=== PATIENT | male | born 1960 | race Hispanic/Latino ===

== ENCOUNTER 2016-10-28 07:02 | Day surgery (SDC) | payer MEDICARE ==
[2016-10-17 10:35] VITALS: BMI 25.0
[2016-10-28] MEDS ORDERED: Propofol 10 mg/ml Inj (20 ML) ONE ×2 (08:08→08:59)
[2016-10-28] MEDS ORDERED: Benzocaine/Butamben/Tetracai 14-2-2% TOP Spray TOP ONE (08:13)
[2016-10-28] MEDS ORDERED: Ketamine 10 mg/ml Inj (20 ml) ONE (08:27)
[2016-10-28] MEDS ORDERED: Sodium Chloride 0.9% 1,000 ML IV SCH (10:00)
[2016-10-28 10:04] VITALS: TEMP 98
[2016-10-28 10:59] VITALS: PULSE 77; O2SAT 97
[2016-10-28 11:08] VITALS: BP 124/74; RESP 18
--- NOTE | 2016-10-28 13:47 | RAD ---
PROCEDURE: Fluoroscopy up to 1 hour HISTORY: Esophageal dilation COMPARISON: TECHNIQUE: Fluoroscopy was provided in the endoscopy suite. 5 minutes and 27 seconds of fluoroscopy time were used. Four images were submitted FINDINGS: The balloon catheter in the distal esophagus IMPRESSION: As above
== END 2016-10-28 11:44 | disposition home or self-care (01) ==
LOC: ENDO 07:02
PROVIDERS: ATTEND Internal Medicine Gastroenterology
DX: K22.2 Esophageal obstruction (principal)
CPT/HCPCS: 43248; 76000; J2704; J2765; J7040 ×2

== ENCOUNTER 2017-01-20 07:19 | Day surgery (SDC) | payer MEDICARE ==
[2016-10-17 10:35] VITALS: BMI 25.0
[2017-01-20 08:00] VITALS: RESP 17
[2017-01-20] MEDS ORDERED: Propofol 10 mg/ml Inj (20 ML) ONE (08:55)
[2017-01-20] MEDS ORDERED: Sodium Chloride 0.9% 1,000 ML IV SCH (10:00)
[2017-01-20 10:37] VITALS: BP 112/62; PULSE 62; TEMP 98.7; O2SAT 99
--- NOTE | 2017-01-20 11:45 | RAD ---
PROCEDURE: Fluoroscopy up to 1 hour HISTORY: Esophogeal Dilation COMPARISON: TECHNIQUE: Fluoroscopy was provided in the endoscopy suite. 5 minutes and 9 seconds of fluoro time. Ten images were submitted FINDINGS: The study shows placement of a wire and catheter in the distal esophagus for the purposes of dilatation. IMPRESSION: As above
== END 2017-01-20 10:54 | disposition home or self-care (01) ==
LOC: ENDO 07:19
PROVIDERS: ATTEND Internal Medicine Gastroenterology
DX: K22.2 Esophageal obstruction (principal); F41.9 Anxiety disorder, unspecified; Z98.890 Other specified postprocedural states; Z79.899 Other long term (current) drug therapy
CPT/HCPCS: 43248; 76000; J2704; J3010; J7040 ×2

== ENCOUNTER 2017-03-31 06:48 | Day surgery (SDC) | payer MEDICARE ==
[2016-10-17 10:35] VITALS: BMI 25.0
[2017-03-31] MEDS ORDERED: Propofol 10 mg/ml Inj (20 ML) ONE ×3 (09:10→09:46)
[2017-03-31] MEDS ORDERED: Sodium Chloride 0.9% 1,000 ML IV SCH (09:15)
[2017-03-31 11:14] VITALS: RESP 18
[2017-03-31 11:49] VITALS: BP 121/71; PULSE 67; TEMP 97.9; O2SAT 99
--- NOTE | 2017-03-31 19:04 | RAD ---
PROCEDURE: Esophageal dilatation under fluoroscopic guidance HISTORY: ESOPHAGEAL DILATATION COMPARISON: None TECHNIQUE: Standard protocol for this study/examination. FINDINGS: Submitted images from the current procedure: 6.0. Total fluoroscopic time (continuous mode) utilized during the procedure: 2 minutes 14 seconds. IMPRESSION: Less than 1 hr fluoroscopic time utilized during performance of the procedure.
== END 2017-03-31 12:49 | disposition home or self-care (01) ==
LOC: ENDO 06:48
PROVIDERS: ATTEND Internal Medicine Gastroenterology
DX: K22.2 Esophageal obstruction (principal)

== ENCOUNTER 2017-08-18 06:47 | Day surgery (SDC) | payer MEDICARE ==
[2017-08-07 09:37] VITALS: BMI 24.2
[2017-08-18] MEDS ORDERED: Lactated Ringer's 1,000 ML IV SCH (08:30)
[2017-08-18] MEDS ORDERED: Propofol 10 mg/ml Inj (20 ML) ONE (08:42)
[2017-08-18 11:36] VITALS: BP 111/67; PULSE 68; RESP 16; TEMP 98.1; O2SAT 98
--- NOTE | 2017-08-18 16:39 | RAD ---
PROCEDURE: Fluoroscopy up to 1 hr. HISTORY: Dilation of esophagus under fluoro COMPARISON: None TECHNIQUE: Standard protocol for this study/examination. FINDINGS: Total fluoroscopic time (continuous mode) utilized during the procedure: 222.2 seconds Total exam DLP: 55.23 (mGy) IMPRESSION: Submitted images from the current procedure: 8.0
== END 2017-08-18 11:27 | disposition home or self-care (01) ==
LOC: ENDO 06:47
PROVIDERS: ATTEND Internal Medicine Gastroenterology
DX: K22.2 Esophageal obstruction (principal)
CPT/HCPCS: 43248; J2001; J2704; J3010; J7040; J7120

== ENCOUNTER 2017-12-29 06:43 | Day surgery (SDC) | payer MEDICARE ==
[2017-08-07 09:37] VITALS: BMI 24.2
[2017-12-29] MEDS ORDERED: Propofol 10 mg/ml Inj (20 ML) ONE (08:20)
[2017-12-29] MEDS ORDERED: ePHEDrine 50 mg/ml Inj ONE (08:51)
[2017-12-29] MEDS ORDERED: Sodium Chloride 0.9% 1,000 ML IV SCH (09:45)
[2017-12-29 10:07] VITALS: BP 113/70
[2017-12-29 10:24] VITALS: PULSE 66; RESP 17; TEMP 98.1; O2SAT 97
--- NOTE | 2018-01-01 10:32 | RAD ---
PROCEDURE: Intraoperative Fluoroscopy. HISTORY: ESOPHAGEAL DILATION FINDINGS: Fluoroscopic assistance was provided. Fluoroscopy time = 2.921 seconds Radiation dose = 2.99 mGy Please refer to the operative report for additional details
== END 2017-12-29 10:53 | disposition home or self-care (01) ==
LOC: ENDO 06:43
PROVIDERS: ATTEND Internal Medicine Gastroenterology
DX: K22.2 Esophageal obstruction (principal)
CPT/HCPCS: 43248; 76000; J2704; J3010; J7030; J7040

== ENCOUNTER 2018-08-08 22:11 | Inpatient (IN) | payer MEDICARE, OTHER ==
--- NOTE | 2018-08-08 23:03 | ED PDOC ---
Arrival/HPI - General Chief Complaint: Medical Clearance Time Seen by Provider: 08/08/18 22:44 Historian: Patient - History of Present Illness Narrative History of Present Illness (Text): 08/08/18 23:03 Toribio Phelan is a 57 year old male, whose past medical history includes esophageal stricture, recurrent aspiration pneumonia, and chronic back pain, who presents to the Emergency department complaining of shortness of breath. Patient states he has been experiencing shortness of breath and cough over the past week, worsening tonight. Patient states symptoms have been consistent with previous episodes of pneumonia and notes he was recently placed on antibiotics by his PMD with no significant relief. Patient denies any fever, chills, chest pain, nausea, vomiting, diarrhea, urinary symptoms, back pain, neck pain, headac he, dizziness, or any other complaints. PMD: Dr. Little Symptom Onset: Gradual Symptom Course: Unchanged Activities at Onset: Light Context: Home Past Medical History - Provider Review Nursing Documentation Reviewed: Yes - Infectious Disease Hx of Infectious Diseases: None - Tetanus Immunization Tetanus Immunization: Unknown - Cardiac Hx Pacemaker: No - Pulmonary Hx Pneumonia: Yes (aspirations pneumonia) Other/Comment: stricture of esophagus - Neurological Hx Paralysis: No - HEENT Hx HEENT Disorder: Yes (wears eyeglasses) - Renal Hx Renal Disorder: No - Endocrine/Metabolic Hx Endocrine Disorders: No - Hematological/Oncological Hx Blood Transfusions: No Hx Blood Transfusion Reaction: No - Integumentary Hx Dermatological Disorder: No - Musculoskeletal/Rheumatological Hx Musculoskeletal Disorders: Yes - Gastrointestinal Other/Comment: esophageal stricture. throat dialation several egd's - Genitourinary/Gynecological Hx Genitourinary Disorders: No - Psychiatric Hx Emotional Abuse: No Hx Substance Use: No - Surgical History Other/Comment: back surgery - Anesthesia Hx Anesthesia Reactions: No Hx Malignant Hyperthermia: No - Suicidal Assessment Feels Threatened In Home Enviroment: No Family/Social History - Physician Review Nursing Documentation Reviewed: Yes Family/Social History: Unknown Family HX Smoking Status: Former Smoker Hx Alcohol Use: No Hx Substance Use: No Hx Substance Use Treatment: No Allergies/Home Meds Allergies/Adverse Reactions: Allergies No Known Allergies Allergy (Verified 08/08/18 22:46) Home Medications: Home Meds Medication Instructions Recorded Confirmed Cyclobenzaprine HCl [Flexeril] 10 mg PO TID 05/10/13 08/02/18 Sertraline [Zoloft] 100 mg PO QAM 05/10/13 08/02/18 Ascorbate Calcium [Vitamin C] 500 mg PO QAM 04/11/16 08/02/18 Clonazepam [Klonopin] 1 mg PO QAM 04/11/16 08/02/18 Clonazepam [Klonopin] 2 mg PO HS 04/11/16 08/02/18 Omeprazole 40 mg PO QAM 04/11/16 08/02/18 Oxycodone HCl [Oxycontin] 80 mg PO QID 04/11/16 08/02/18 Oxycodone HCl [Oxycontin] 15 mg PO QID 04/15/16 08/02/18 Review of Systems - Physician Review All systems were reviewed & negative as marked: Yes - Review of Systems Constitutional: Normal. absent: Fevers Eyes: Normal ENT: Normal Respiratory: SOB, Cough Cardiovascular: Normal. absent: Chest Pain Gastrointestinal: Normal. absent: Abdominal Pain, Diarrhea, Nausea, Vomiting Genitourinary Male: Normal. absent: Dysuria, Frequency, Hematuria, Urinary Output Changes Musculoskeletal: Normal. absent: Back Pain, Neck Pain Skin: Normal. absent: Rash Neurological: Normal. absent: Headache, Dizziness Endocrine: Normal Hemo/Lymphatic: Normal Psychiatric: Normal Physical Exam Vital Signs Reviewed: Yes Vital Signs Pulse Resp BP Pulse Ox 08/08/18 22:45 88 18 104/74 97 Temperature: Afebrile Blood Pressure: Normal Pulse: Regular Respiratory Rate: Normal Appearance: Positive for: Well-Appearing, Non-Toxic, Comfortable Pain Distress: None Mental Status: Positive for: Alert and Oriented X 3 - Systems Exam Head: Present: Atraumatic, Normocephalic Pupils: Present: PERRL Extroacular Muscles: Present: EOMI Conjunctiva: Present: Normal Mouth: Present: Moist Mucous Membranes Neck: Present: Normal Range of Motion Respiratory/Chest: Present: Rhonchi. No: Respiratory Distress, Accessory Muscle Use Cardiovascular: Present: Regular Rate and Rhythm, Normal S1, S2. No: Murmurs Abdomen: No: Tenderness, Distention, Peritoneal Signs Back: Present: Normal Inspection Upper Extremity: Present: Normal Inspection. No: Cyanosis, Edema Lower Extremity: Present: Normal Inspection. No: Edema Neurological: Present: GCS=15, CN II-XII Intact, Speech Normal Skin: Present: Warm, Dry, Normal Color. No: Rashes Psychiatric: Present: Alert, Oriented x 3, Normal Insight, Normal Concentration Medical Decision Making ED Course and Treatment: 08/08/18 23:03 Impression: 57 year old male complaining of shortness of breath and cough. Plan: -- EKG -- Chest X-ray -- Labs, cardiac enzymes, blood cultures, BNP -- Duoneb -- Oxycodone -- Reassess and disposition Prior Visits: Notes and results from previous visits were reviewed. Progress Notes: 08/08/18 23:[address] Little, who is aware and agrees with plan. Accepts pt in to his service. Pt [facility] be [facility] for bronchitis. 08/09/18 01:22 Chest X-ray reviewed, shows no acute processes. 08/09/18 01:30 Reviewed EKG, NSR at 80 bpm. RBBB. LAFB. Non-specific ST/T wave changes. - Lab Interpretations I have reviewed the lab results: Yes - RAD Interpretation Brand Inspector: ED Physician - EKG Interpretation Interpreted by ED Physician: Yes Type: 12 lead EKG - Scribe Statement The provider has reviewed the documentation as recorded by the Scribe Yokasta Forrester Provider Scribe Attestation: All medical record entries made by the Scribe were at my direction and personally dictated by me. I have reviewed the chart and agree that the record accurately reflects my personal performance of the history, physical exam, medical decision making, and the department course for this patient. I have also personally directed, reviewed, and agree with the discharge instructions and disposition. Disposition/Present on Arrival - Present on Arrival Any Indicators Present on Arrival: No History of DVT/PE: No History of Uncontrolled Diabetes: No Urinary Catheter: No History of Decub. Ulcer: No History Surgical Site Infection Following: None - Disposition Have Diagnosis and Disposition been Completed?: Yes Diagnosis: Asthmatic bronchitis Disposition: HOSPITALIZED Disposition Time: 01:00 Condition: FAIR
[2018-08-08] MEDS ORDERED: Albuterol-Ipratrop 3 mg / 0.5 (3 ml) UD IH STA (23:19)
[2018-08-08] MEDS ORDERED: oxyCODONE 15 mg Immediate Release Tab PO STA (23:34)
[2018-08-08] MEDS ORDERED: oxyCODONE 80 mg ER Tab (oxyCONTIN) PO STA (23:35)
[2018-08-09 00:07] LABS: BASO # 0.02 K/mm3 (0.0-2.0); BASO % 0.2 % (0.0-3.0); EOS % 0.1 % (1.5-5.0); HEMOGLOBIN 10.9 g/dL (14.0-18.0); LYMPH # 1.8 (1.2-3.4); LYMPH % 19.4 % (22.0-35.0); MEAN CORPUSCULAR HEMOGLOBIN 26.1 pg (25.0-35.0); MEAN CORPUSCULAR HGB CONC 31.5 g/dl (31.0-37.0); MEAN PLATELET VOLUME 9.1 fl (7.0-11.0); MONO # 0.7 (0.1-0.6); RBC 4.17 10^6/uL (3.5-6.1); RED CELL DISTRIBUTION WIDTH 14.8 % (11.5-14.5); WHITE BLOOD COUNT 9.3 10^3/uL (4.5-11.0)
[2018-08-09 00:09] LABS: ALBUMIN 4.2 g/dL (3.0-4.8); ALT/SGPT 12 U/L (7-56); AST/SGOT 48 U/L (17-59); BLOOD UREA NITROGEN 25 mg/dL (7-21); CALCIUM 8.6 mg/dL (8.4-10.5); GFR NON-AFRICAN AMERICAN > 60
[2018-08-09] MEDS ORDERED: Piperacillin/Tazobact 3.375 gm 100 ML IVPB STA (00:12)
[2018-08-09 00:21] LABS: B-TYPE NATRIURETIC PEPTIDE 113 pg/mL (0-450); TROPONIN I < 0.01 ng/mL
[2018-08-09 00:32] LABS: CK MB% 3.4 % (2.5-3.0); CK-MB 8.4 ng/mL (0.0-3.6)
[2018-08-09] MEDS ORDERED: Albuterol-Ipratrop 3 mg / 0.5 (3 ml) UD IH PRN (01:03)
[2018-08-09] MEDS ORDERED: oxyCODONE 15 mg Immediate Release Tab PO PRN (08:13)
--- NOTE | 2018-08-09 09:21 | RAD ---
Date of service: 08/08/2018 HISTORY: sob COMPARISON: 10/04/2014 TECHNIQUE: Chest PA and lateral FINDINGS: LUNGS: There is chronic scarring at the right lung base similar in appearance to the exam from 2014. PLEURA: No significant pleural effusion identified. No pneumothorax apparent. CARDIOVASCULAR: No aortic atherosclerotic calcification present. Normal cardiac size. No pulmonary vascular congestion. OSSEOUS STRUCTURES: No significant abnormalities. VISUALIZED UPPER ABDOMEN: Normal. OTHER FINDINGS: None. IMPRESSION: Chronic scarring at the right lung base and elevation of the right hemidiaphragm. No acute findings
[2018-08-09] MEDS: oxyCODONE 20 mg ER Tab (oxyCONTIN) PO SCH ×2 (09:56→17:02)
[2018-08-09] MEDS: Pantoprazole 40 mg EC Tab PO SCH (09:57)
[2018-08-09] MEDS ORDERED: Non Formulary Medication (Omeprazole [Omeprazole] 40 MG) PO SCH (10:00)
--- NOTE | 2018-08-09 10:48 | CARD ---
APPROVED REPORT Date of service: 08/09/2018 EKG Measurement Heart [id number] <Conclusion> Normal sinus rhythm Right bundle branch block Left anterior fascicular block Bifascicular block Possible Lateral infarct, age undetermined Abnormal ECG
[2018-08-09] MEDS: oxyCODONE 5 mg Immediate Release Tab PO PRN ×2 (10:56→19:23)
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
--- NOTE | 2018-08-09 15:40 | CP.PCM.CON ---
<Liz Costa - Last Filed: 08/09/18 15:41> History of Present Illness - History of Present Illness History of Present Illness: Gastroenterology Fellow/PGY6 Consult Note 57 year old male with PMH of esophageal stricture s/p multiple dilations (most recent 12/2017) complicated by recurrent aspiration pneumonia and chronic back pain presenting with shortness of breath. Patient admits to non-productive cough and difficulty breath for one week despite use of antibiotic therapy from PCP. Notes symptoms similar to prior episodes of pneumonia. Admits to nausea without vomiting. He has been able to tolerate regular diet since last esophageal stricture dilation 12/2017. Endorses subjective unintentional weight loss with stable weight documented in the last year on EMR review. Denies hematemesis, dysphagia, odynophagia, chest pain, abdominal pain, constipation, or diarrhea. Multiple prior EGD 04/2016 to 12/2017 for stricture dilations. No prior colonoscopy. Family History-denies colon cancer, stomach cancer Social History- former tobacco and alcohol use, quit over 40 years ago, denies i llicit drug use Surgical History-back surgery, appendectomy, left ankle surgery, hernia repair Review of Systems - Review of Systems Review of Systems: 12-point review of systems negative except for as above Past Patient History - Infectious Disease Hx of Infectious Diseases: None - Tetanus Immunizations Tetanus Immunization: Unknown - Past Social History Smoking Status: Former Smoker - CARDIAC Hx Pacemaker: No - PULMONARY Hx Pneumonia: Yes (aspirations pneumonia) Other/Comment: stricture of esophagus - NEUROLOGICAL Hx Paralysis: No - HEENT Hx HEENT Problems: Yes (wears eyeglasses) - RENAL Hx Chronic Kidney Disease: No - ENDOCRINE/METABOLIC Hx Endocrine Disorders: No - HEMATOLOGICAL/ONCOLOGICAL Hx Blood Transfusions: No Hx Blood Transfusion Reaction: No - INTEGUMENTARY Hx Dermatological Problems: No - MUSCULOSKELETAL/RHEUMATOLOGICAL Hx Musculoskeletal Disorders: Yes - GASTROINTESTINAL Other/Comment: esophageal stricture. throat dialation several egd's - GENITOURINARY/GYNECOLOGICAL Hx Genitourinary Disorders: No - PSYCHIATRIC Hx Emotional Abuse: No Hx Substance Use: No - SURGICAL HISTORY Other/Comment: back surgery - ANESTHESIA Hx Anesthesia Reactions: No Hx Malignant Hyperthermia: No Meds Allergies/Adverse Reactions: Allergies Allergy/AdvReac Type Severity Reaction Status Date / Time No Known Allergies Allergy Verified 08/09/18 12:34 - Medications Medications: Current Medications Acetaminophen (Tylenol 325mg Tab) 650 mg PO Q4H PRN PRN Reason: Pain, Mild (1-3) Acetylcysteine (Acetylcysteine 20%) 4 ml IH BIDRESP [facility] Albuterol/Ipratropium (Duoneb 3 Mg/0.5 Mg (3 Ml) Ud) 3 ml IH Q4H PRN PRN Reason: Shortness of Breath Arformoterol Tartrate (Brovana) 15 mcg IH [id number] ANASTACIO Budesonide (Pulmicort Respules) 0.5 mg IH [id number] ANASTACIO Clonazepam (Klonopin) 1 mg PO QAM [facility]; Protocol Last Admin: 08/09/18 09:57 Dose: 1 mg Cyclobenzaprine HCl (Flexeril) 10 mg PO TID [facility] Last Admin: 08/09/18 14:32 Dose: 10 mg Doxycycline Hyclate (Doryx) 100 mg PO Q12 [facility]; Protocol Enoxaparin Sodium (Lovenox) 30 mg SC DAILY [facility]; Protocol Ampicillin Sodium/Sulbactam (Sodium 3 gm/ Sodium Chloride) 100 mls @ 200 mls/hr IVPB Q6 [facility]; Protocol Oxycodone HCl (Oxycontin Extended Release Tab) 60 mg PO Q8H [facility] Last Admin: 08/09/18 09:56 Dose: 60 mg Oxycodone HCl (Oxycodone Immediate Release Tab) 15 mg PO Q6H PRN PRN Reason: Pain, severe (8-10) Last Admin: 08/09/18 10:56 Dose: 15 mg Pantoprazole Sodium (Protonix Ec Tab) 40 mg PO DAILY [facility] Last Admin: 08/09/18 09:57 Dose: 40 mg Sertraline HCl (Zoloft) 100 mg PO QAM [facility] Last Admin: 08/09/18 10:21 Dose: 100 mg Physical Exam - Constitutional Appears: Non-toxic, No Acute Distress - Head Exam Head Exam: ATRAUMATIC, NORMOCEPHALIC - Eye Exam Eye Exam: EOMI, PERRL Pupil Exam: PERRL. absent: Miosis, Mydriatic - ENT Exam ENT Exam: Mucous Membranes Moist, Normal Oropharynx - Neck Exam Neck exam: Positive for: Full Rom, Normal Inspection - Respiratory Exam Respiratory Exam: Clear to Auscultation Bilateral. absent: Rales, Rhonchi, Wheezes - Cardiovascular Exam Cardiovascular Exam: RRR, +S1, +S2. absent: Gallop, Rubs - GI/Abdominal Exam GI & Abdominal Exam: Normal Bowel Sounds, Soft. absent: Distended, Firm, Guarding, Organomegaly, Rebound, Rigid, Tenderness - Extremities Exam Extremities exam: Positive for: normal inspection. Negative for: pedal edema - Neurological Exam Neurological exam: Alert - Psychiatric Exam Psychiatric exam: Agitated, Normal Affect - Skin Skin Exam: Dry, Intact, Normal Color, Warm Results - Vital Signs Recent Vital Signs: Last Vital Signs Temp 98.0 F 08/09/18 04:08 Pulse 86 08/09/18 04:08 Resp 16 08/09/18 04:08 BP 121/76 08/09/18 04:08 Pulse Ox 94 L 08/09/18 04:08 - Labs Result Diagrams: 08/08/18 23:45 08/08/18 23:45 Labs: Laboratory Results - last 24 hr 08/08/18 08/08/18 08/09/18 23:45 23:45 01:23 WBC 9.3 RBC 4.17 Hgb 10.9 L Hct 34.6 L MCV 83.0 MCH 26.1 MCHC 31.5 RDW 14.8 H Plt Count 285 MPV 9.1 Neut % (Auto) 73.3 H Lymph % (Auto) 19.4 L [place] % (Auto) 7.0 H Eos % (Auto) 0.1 L Baso % (Auto) 0.2 Lymph # (Auto) 1.8 [place] # (Auto) 0.7 H Eos # (Auto) 0.0 Baso # (Auto) 0.02 Absolute Neuts (auto) 6.83 H Sodium 139 Potassium 3.9 Chloride 100 Carbon Dioxide 28 Anion Gap 15 BUN 25 H Creatinine 0.9 Est GFR ( Amer) > 60 Est GFR (Non-Af Amer) > 60 Random Glucose 105 Calcium 8.6 Magnesium 2.1 Total Bilirubin 0.3 AST 48 ALT 12 Alkaline Phosphatase 91 Lactate Dehydrogenase 547 Total Creatine Kinase 245 H CK-MB (CK-2) 8.4 H CK-MB (CK-2) % 3.4 H Troponin I < 0.01 D NT-Pro-B Natriuret Pep 113 Total Protein 8.5 H Albumin 4.2 Globulin 4.3 Albumin/Globulin Ratio 1.0 L Influenza Typ A,B (EIA) Negative for flu a/b Assessment & Plan - Assessment and Plan (Free Text) Assessment: 57 year old male with PMH of esophageal stricture s/p multiple dilations (most recent 12/2017) complicated by recurrent aspiration pneumonia and chronic back pain presenting with shortness of breath. Active treatment of acute bronchitis. GI consultation for anemia and history of esophageal stricture. Multiple prior EGD for stricture dilations from 04/2016 to EGD 12/2017 showing esophageal stricture at 18cm from incisors s/p sequential Savory dilation from [address] without complication. No prior colonoscopy. Plan: -tolerating regular diet in ER -ID and primary team managing bronchitis -on antibiotics and steroids -chronic normocytic anemia with baseline Hgb/Hct -follow up iron panel, B12, folate levels -will discuss scheduling of repeat EGD after improved pulmonary management for stricture surveillance with Dr. Hanson due to concern for possible aspiration with acute bronchitis -will benefit from colonoscopy for colorectal cancer screening once confirm no aspiration risk to be able to tolerate bowel preparation <Candido Hanson V - Last Filed: 08/10/18 00:07> Meds - Medications Medications: Current Medications Acetaminophen (Tylenol 325mg Tab) 650 mg PO Q4H PRN PRN Reason: Pain, Mild (1-3) Acetylcysteine (Acetylcysteine 20%) 4 ml IH BIDRESP [facility] Albuterol/Ipratropium (Duoneb 3 Mg/0.5 Mg (3 Ml) Ud) 3 ml IH Q4H PRN PRN Reason: Shortness of Breath Arformoterol Tartrate (Brovana) 15 mcg IH [id number] [facility] Budesonide (Pulmicort Respules) 0.5 mg IH [id number] ANASTACIO Clonazepam (Klonopin) 1 mg PO QAM [facility]; Protocol Last Admin: 08/09/18 09:57 Dose: 1 mg Cyclobenzaprine HCl (Flexeril) 10 mg PO TID [facility] Last Admin: 08/09/18 18:41 Dose: 10 mg Doxycycline Hyclate (Doryx) 100 mg PO Q12 [facility]; Protocol Last Admin: 08/09/18 23:32 Dose: 100 mg Enoxaparin Sodium (Lovenox) 30 mg SC DAILY [facility]; Protocol Ampicillin Sodium/Sulbactam (Sodium 3 gm/ Sodium Chloride) 100 mls @ 200 mls/hr IVPB Q6 [facility]; Protocol Last Admin: 08/09/18 18:37 Dose: 200 mls/hr Oxycodone HCl (Oxycontin Extended Release Tab) 60 mg PO Q8H [facility] Last Admin: 08/09/18 17:02 Dose: 60 mg Oxycodone HCl (Oxycodone Immediate Release Tab) 15 mg PO Q6H PRN PRN Reason: Pain, severe (8-10) Last Admin: 08/09/18 19:23 Dose: 15 mg Pantoprazole Sodium (Protonix Ec Tab) 40 mg PO DAILY [facility] Last Admin: 08/09/18 09:57 Dose: 40 mg Sertraline HCl (Zoloft) 100 mg PO QAM [facility] Last Admin: 08/09/18 10:21 Dose: 100 mg Results - Vital Signs Recent Vital Signs: Last Vital Signs Temp 98 F 08/09/18 17:00 Pulse 77 08/09/18 17:00 Resp 18 08/09/18 17:00 BP 120/54 L 08/09/18 17:00 Pulse Ox 98 08/09/18 17:00 - Labs Result Diagrams: 08/08/18 23:45 08/08/18 23:45 Labs: Laboratory Results - last 24 hr 08/08/18 08/08/18 08/09/18 23:45 23:45 01:23 WBC 9.3 RBC 4.17 Hgb 10.9 L Hct 34.6 L MCV 83.0 MCH 26.1 MCHC 31.5 RDW 14.8 H Plt Count 285 MPV 9.1 Neut % (Auto) 73.3 H Lymph % (Auto) 19.4 L [place] % (Auto) 7.0 H Eos % (Auto) 0.1 L Baso % (Auto) 0.2 Lymph # (Auto) 1.8 [place] # (Auto) 0.7 H Eos # (Auto) 0.0 Baso # (Auto) 0.02 Absolute Neuts (auto) 6.83 H Sodium 139 Potassium 3.9 Chloride 100 Carbon Dioxide 28 Anion Gap 15 BUN 25 H Creatinine 0.9 Est GFR ( Amer) > 60 Est GFR (Non-Af Amer) > 60 Random Glucose 105 Calcium 8.6 Magnesium 2.1 Iron TIBC % Saturation Transferrin Ferritin Total Bilirubin 0.3 AST 48 ALT 12 Alkaline Phosphatase 91 Lactate Dehydrogenase 547 Total Creatine Kinase 245 H CK-MB (CK-2) 8.4 H CK-MB (CK-2) % 3.4 H Troponin I < 0.01 D NT-Pro-B Natriuret Pep 113 Total Protein 8.5 H Albumin 4.2 Globulin 4.3 Albumin/Globulin Ratio 1.0 L Vitamin B12 Folate Procalcitonin Influenza Typ A,B (EIA) Negative for flu a/b 08/09/18 08/09/18 08/09/18 10:40 17:52 17:52 WBC RBC Hgb Hct MCV MCH MCHC RDW Plt Count MPV Neut % (Auto) Lymph % (Auto) [place] % (Auto) Eos % (Auto) Baso % (Auto) Lymph # (Auto) [place] # (Auto) Eos # (Auto) Baso # (Auto) Absolute Neuts (auto) Sodium Potassium Chloride Carbon Dioxide Anion Gap BUN Creatinine Est GFR ( Amer) Est GFR (Non-Af Amer) Random Glucose Calcium Magnesium Iron 32 L TIBC 384 % Saturation 8 L Transferrin Ferritin 27.9 Total Bilirubin AST ALT Alkaline Phosphatase Lactate Dehydrogenase Total Creatine Kinase CK-MB (CK-2) CK-MB (CK-2) % Troponin I NT-Pro-B Natriuret Pep Total Protein Albumin Globulin Albumin/Globulin Ratio Vitamin B12 588 Folate 8.4 Procalcitonin 0.57 H Influenza Typ A,B (EIA) 08/09/18 17:52 WBC RBC Hgb Hct MCV MCH MCHC RDW Plt Count MPV Neut % (Auto) Lymph % (Auto) [place] % (Auto) Eos % (Auto) Baso % (Auto) Lymph # (Auto) [place] # (Auto) Eos # (Auto) Baso # (Auto) Absolute Neuts (auto) Sodium Potassium Chloride Carbon Dioxide Anion Gap BUN Creatinine Est GFR ( Amer) Est GFR (Non-Af Amer) Random Glucose Calcium Magnesium Iron TIBC % Saturation Transferrin 277.05 Ferritin Total Bilirubin AST ALT Alkaline Phosphatase Lactate Dehydrogenase Total Creatine Kinase CK-MB (CK-2) CK-MB (CK-2) % Troponin I NT-Pro-B Natriuret Pep Total Protein Albumin Globulin Albumin/Globulin Ratio Vitamin B12 Folate Procalcitonin Influenza Typ A,B (EIA) Attending/Attestation - Attestation I have personally seen and examined this patient.: Yes I have fully participated in the care of the patient.: Yes I have reviewed all pertinent clinical information: Yes Notes (Text): This is an addendum to GI consult report dictated by the Painter Plate. The patient was seen and evaluated earlier. Medical records, lab studies, imagings were reviewed. Last 24 hours events reviewed. Agreed with the above treatment plan as outlined in Painter Plate 's notes with the addition of the following 08/10/18 00:06
--- NOTE | 2018-08-09 15:57 | CON ---
DATE: 08/09/2018 PULMONARY CONSULTATION NOTE REFERRING PHYSICIAN: Dr. Ishaan Little. REASON FOR CONSULTATION: Shortness of breath, recurrent aspiration pneumonia and cough. HISTORY OF PRESENT ILLNESS: This is a 57 year old male with past medical history significant for esophageal stricture, recurrent aspiration pneumonia, chronic back pain, history of laminectomy in the past. The patient came into emergency room complaining of shortness of breath, which has gotten worse over the past week, reports it is worse at night. He was placed on antibiotics by his primary care physician with no relief. The patient states that this occurs frequently due to esophageal stricture where he tends to develop aspiration pneumonia often. Today, he reports productive cough, denies shortness of breath. No headache, rhinitis, chest pain, abdominal pain, nausea, vomiting, diarrhea, leg pain or leg swelling reported. PAST MEDICAL HISTORY: As per history of present illness. ALLERGIES: NO KNOWN ALLERGIES. SOCIAL HISTORY: Never smoked. No EtOH abuse. No illicit drug use reported. FAMILY HISTORY: No significant cardiopulmonary disease reported. MEDICATIONS: Tylenol 650 mg every 4 hours p.r.n. mild pain, DuoNeb 3 mL inhalation every 4 hours p.r.n., Klonopin 1 mg daily, Flexeril 10 mg three times a day, OxyContin 60 mg every 8 hours, oxycodone immediate relief 50 mg every 6 hours p.r.n., Protonix 40 mg daily, and Zoloft 100 mg daily. REVIEW OF SYSTEMS: No headache, rhinitis, chest pain, abdominal pain, nausea, vomiting, diarrhea, leg pain, or leg swelling reported. The patient does have productive cough. Denies shortness of breath at this time. PHYSICAL EXAMINATION GENERAL: Sitting up in bed, no acute distress. VITAL SIGNS: Blood pressure 126/76, pulse 86, temperature 98 and oxygen saturation 94% on room air. HEENT: Moist mucous membranes. Crowded airway. Mallampati score of 4. NECK: Supple. No JVD. LUNGS: Rhonchi bilaterally. Mild wheezing. Crackles at the bases. CARDIOVASCULAR: S1 and S2 audible. ABDOMEN: Soft and nontender. No distention. No organomegaly. EXTREMITIES: No bilateral lower extremity edema. NEUROLOGIC: Awake, alert, verbal. Follows commands. LABORATORY DATA: Reviewed. WBC 9.3, RBC 4.17, hemoglobin 10.9, hematocrit 34.6, and platelets 285. Sodium 139, potassium 3.9, chloride 100, carbon dioxide 28, anion gap of 15, BUN 25, creatinine 0.9, GFR greater than 60, random glucose 105, calcium 8.6, magnesium 2.1, total bilirubin 0.3, AST 48, ALT 12, alkaline phosphatase 91, lactated dehydrogenase 547, total creatine kinase 245, CK-MB 8.4, CK-MB % 3.4, troponin less than 0.01, proBNP 113, total protein 8.5, albumin 4.2, globulin 4.3 and albumin-globulin ratio 1. Influenza type A and B negative. Chest x-ray shows chronic scarring at the right lung base and elevation of the right hemidiaphragm. No acute findings. EKG shows normal sinus rhythm, right bundle-branch block, left anterior vesicular block, possible lateral infarct age undetermined. IMPRESSION AND PLAN: The patient has history of recurrent aspiration pneumonia, history of esophageal stricture. We will order procalcitonin to be done in the morning to determine bacterial pneumonia. We will place the patient on Brovana, Pulmicort, Mucomyst nebulizer treatments. We will start Lovenox for deep venous thrombosis prophylaxis. We will add Unasyn antibiotics at this time until procalcitonin level is back. We will order esophagogram for esophageal stricture. The patient is pending Gastroenterology consult. We will order anemia workup and stool for guaiac in the morning. Aspiration precaution, head of bed elevated at 45 degrees and fall precautions. This patient is seen and examined with Dr. Vaughan. Discussed assessment and plan as described above. Seen and examined with Nirali Black APN. Discussed assessment and plan as described above. Thank you for this consult. We will follow with you. Wayne Campoverde APN Arnav Vaughan MD [facility]
[2018-08-09 16:41] VITALS: BMI 23.5
[2018-08-09] MEDS ORDERED: Pneumococcal 23-Valent Vaccine IM ONE (16:41)
[2018-08-09] MEDS ORDERED: Influenza Vaccine 60 mcg/0.5 mL SYR (4YR UP) IM ONE (16:41)
[2018-08-09 18:27] LABS: IRON 32 ug/dL (45-180)
[2018-08-09 18:36] LABS: % IRON SATURATION 8 % (20-55); TOTAL IRON BINDING CAPACITY 384 ug/dL (261-462)
[2018-08-09 21:32] LABS: FERRITIN 27.9 ng/mL
[2018-08-09] MEDS ORDERED: CLONAZEPAM 2 MG PO SCH (22:00)
[2018-08-09 22:03] LABS: FOLATE 8.4 ng/mL
[2018-08-10] MEDS: oxyCODONE 20 mg ER Tab (oxyCONTIN) PO SCH ×2 (01:39→08:49)
[2018-08-10] MEDS: Arformoterol 15 mcg/2 ml Inh Sol IH SCH ×2 (07:22→20:09)
[2018-08-10] MEDS: Acetylcysteine 20% Inhal Soln (4ml) IH SCH ×2 (07:23→20:09)
[2018-08-10] MEDS: Budesonide 0.5 mg/2 ml Inhal Susp UD IH SCH ×2 (07:23→20:09)
[2018-08-10 07:29] LABS: BASO # 0.02 K/mm3 (0.0-2.0); BASO % 0.3 % (0.0-3.0); EOS # 0.1 (0.0-0.7); HEMOGLOBIN 9.7 g/dL (14.0-18.0); LYMPH # 1.6 (1.2-3.4); LYMPH % 22.5 % (22.0-35.0); MEAN CELL VOLUME 82.6 fl (80.0-105.0); MEAN CORPUSCULAR HEMOGLOBIN 25.5 pg (25.0-35.0); MEAN CORPUSCULAR HGB CONC 30.9 g/dl (31.0-37.0); MONO # 0.6 (0.1-0.6); MONO % 8.6 % (1.0-6.0); RBC 3.8 10^6/uL (3.5-6.1); RED CELL DISTRIBUTION WIDTH 14.7 % (11.5-14.5); WHITE BLOOD COUNT 6.9 10^3/uL (4.5-11.0)
[2018-08-10 08:04] LABS: ALBUMIN 3.7 g/dL (3.0-4.8); ALT/SGPT 17 U/L (7-56); AST/SGOT 45 U/L (17-59); BLOOD UREA NITROGEN 9 mg/dL (7-21); CALCIUM 8.3 mg/dL (8.4-10.5); GFR NON-AFRICAN AMERICAN > 60
[2018-08-10] MEDS: Pantoprazole 40 mg EC Tab PO SCH (10:59)
[2018-08-10] MEDS: Enoxaparin 30 mg Syringe SC SCH (10:59)
[2018-08-10] MEDS ORDERED: Barium Sulfate for Susp 96% w/w 176g Bottle PR ONE (11:21)
[2018-08-10] MEDS: oxyCODONE 5 mg Immediate Release Tab PO PRN (12:21)
--- NOTE | 2018-08-10 12:28 | HP ---
DATE OF EXAM: 08/09/2018 REASON FOR ADMISSION: Cough and pneumonia. HISTORY OF PRESENT ILLNESS: This is a 57-year-old male with chronic pain syndrome, has history of chronic esophageal stricture, etiology unknown with repeated esophageal dilation. The patient came in with cough, short of breath and fever. He took Augmentin for a week and did not help. The patient does have a history of recurrent aspiration pneumonia. The patient came to the ER for evaluations. No chest pain. No other complaints. PAST MEDICAL HISTORY: The patient has as above; esophageal stricture, chronic back pain with multiple surgeries. He is disabled and since then on pain medications which has been lower down, also patient has chronic cough and had dysphagia due to stricture of the esophagus. Also has chronic anxiety and depression and has been on Zoloft and Klonopin for years. The patient is noncompliant with recommended consultations as outpatient. HOME MEDICATIONS: Klonopin 1 mg twice a day, cyclobenzaprine 10 mg four times a day, Zoloft 100 at bedtime, OxyContin 80 four times a day which has been lowered and oxycodone 15 mg four times a day, 40 once a day and vitamin C once a day. ALLERGIES: NO KNOWN ALLERGIES. SOCIAL HISTORY: No smoking. No drinking. He lives with his and parents. FAMILY HISTORY: Noncontributory. PHYSICAL EXAMINATION: VITAL SIGNS: Temperature 97.9, heart rate 78, blood pressure 126/79, respiration 18 and saturation 97% on room air. HEAD AND NECK: Normal. No JVD. No thyromegaly. CHEST: Bilateral rhonchi and coarse crepitations, right more than left. Mild no wheeze. CARDIAC: First sound and second are normal. ABDOMEN: Soft and nontender. EXTREMITIES: No edema. NEUROLOGIC: Normal. LABORATORY DATA: His laboratory study on admission; white count 9.3, hemoglobin 10.9, hematocrit 34.6 and platelets 285. Chemistry; sodium 139, potassium 3.9, chloride 100, bicarb of 28, BUN 25 and creatinine 0.9. The patient has liver function test which is normal. The patient has total CK 245, troponin is negative, total protein 8.5, albumin is normal. Iron studies was done and which shows iron deficiency anemia and is normal. The patient also had a B12 which is normal and his procalcitonin level 0.57 which is elevated. He also has influenza type A and B serology, which is negative. He also had a chest x-rays which shows chronic scarring on the right lung these are similar . IMPRESSION: This is 57-year-old male, came in short of breath, coughing, not feeling well after a course of Augmentin and has been not improving. The patient was admitted for; 1. Recurrent aspiration pneumonia. 2. Anemia. PLAN: IV antibiotic, Zosyn and ID consult, Pulmonary consult and also GI consult. The patient has bee advised to go for colonoscopy repeatedly, but it seems he did not go. The patient seen by the GI consult in the patient Dr. Hanson. Continue current therapy. We will followup with other consultants recommendations. We will resume his chronic back pain medications on an overdose. We reduced OxyContin to 60 every 8 hours from 80 every 8 hours, also oxycodone we will keep at 15, has been dropped from 30 to 15 mg four times day, Klonopin has been dropped from four 1 mg a day into as outpatient and now it is 1 mg twice a day. We will continue monitor the patient and we will followup clinically. Ishaan Little MD
[2018-08-10] MEDS ORDERED: Peg-Electrolyte Oral Soln 4L (Golytely) PO ONE (13:00)
--- NOTE | 2018-08-10 13:16 | PN ---
DATE: 08/10/2018 PULMONARY PROGRESS NOTE REFERRING PHYSICIAN: Dr. Little. SUBJECTIVE: The patient is seen ambulating in room. No acute distress. No overnight events reported. The patient reports that he does have occasional cough. Denies shortness of breath at this time. No headache, rhinitis, chest pain, abdominal pain, nausea, vomiting, diarrhea, leg pain or leg swelling reported. OBJECTIVE: GENERAL: No acute distress. VITAL SIGNS: Blood pressure 110/72, pulse 78, temperature 97.8, oxygen saturation 97% on room air. HEENT: Moist mucous membranes. Crowded airway. Mallampati score 4. NECK: Supple. No JVD. LUNGS: Rhonchi bilaterally. CARDIOVASCULAR: S1, S2 audible. ABDOMEN: Soft, nontender. No distention. No organomegaly. EXTREMITIES: No bilateral lower extremity edema. NEUROLOGIC: Awake, alert, verbal. Follows commands. MEDICATIONS: Reviewed. Tylenol 650 every 4 hours p.r.n. mild pain, Mucomyst 4 mL inhalation twice a day, DuoNeb 3 mL inhalation every 4 hours p.r.n., ampicillin/sulbactam 3 g every 6 hours, Brovana 15 mcg every 12 hours, Pulmicort 0.5 mg every 12 hours, Klonopin 1 mg twice a day, Flexeril 10 mg three times a day, doxycycline 100 mg every 12 hours, Lovenox 30 mg subcutaneous daily, oxycodone mg every 8 hours, oxycodone 15 mg every 6 hours p.r.n., Protonix 40 mg daily, Zoloft 100 mg daily. LABORATORY DATA: Reviewed. WBC 6.9, RBC 3.80, hemoglobin 9.7, hematocrit 31.4, and platelets 262. Sodium 138, potassium 3.6, chloride 101, carbon dioxide 31, anion gap 10, BUN 9, creatinine 0.6, GFR greater than 60, random glucose 92, calcium 8.3, total bilirubin 0.4, AST 45, ALT 17, alkaline phosphatase 71, total protein 7.3, albumin 3.7, globulin 3.6, albumin-globulin ratio 1. Procalcitonin 0.57. Iron 32, PRBC 384, , ferritin 27.9, vitamin B12 588.4. Blood cultures preliminary no growth after 24 hours. Esophagram report pending. IMPRESSION AND PLAN: Recurrent aspiration pneumonia with positive procalcitonin level, esophageal stricture, chronic back pain, acute bronchitis. Continue consult with Infectious Disease. Continue antibiotic therapy per Infectious Disease. Continue inhaled bronchodilators, gastric prophylaxis, deep venous thrombosis prophylaxis. We will review esophagogram when report available. Aspiration precaution, head of bed elevated at 45 degrees, fall precautions. The patient seen and examined with Dr. Vaughan. Discussed assessment and plan as described above. The patient seen and examined with Wayne Campoverde, nurse practitioner. Discussed assessment and plan as described above. Thank you for this consult. We will follow with you. Wayne Campoverde APN Arnav Vaughan MD
--- NOTE | 2018-08-10 13:18 | CP.PCM.PN ---
<IgorLiz - Last Filed: 08/10/18 13:15> Subjective - Date & Time of Evaluation Date of Evaluation: 08/10/18 Time of Evaluation: 13:15 - Subjective Subjective: Gastroenterology Fellow/PGY6 Progress Note Patient ambulating in room. Denies abdominal pain. Improved shortness of breath. Tolerating regular diet. A 12-point review of systems negative except for as above. Objective - Vital Signs/Intake and Output Vital Signs (last 24 hours): Temp Pulse Resp BP Pulse Ox 97.8 F 73 18 110/72 97 08/10/18 06:00 08/10/18 09:01 08/10/18 06:00 08/10/18 06:00 08/10/18 06:00 - Medications Medications: Current Medications Acetaminophen (Tylenol 325mg Tab) 650 mg PO Q4H PRN PRN Reason: Pain, Mild (1-3) Acetylcysteine (Acetylcysteine 20%) 4 ml IH BIDRESP [facility] Last Admin: 08/10/18 07:23 Dose: 4 ml Albuterol/Ipratropium (Duoneb 3 Mg/0.5 Mg (3 Ml) Ud) 3 ml IH Q4H PRN PRN Reason: Shortness of Breath Arformoterol Tartrate (Brovana) 15 mcg IH [id number] [facility] Last Admin: 08/10/18 07:22 Dose: 15 mcg Bisacodyl (Dulcolax) 10 mg PO ONCE ONE Stop: 08/10/18 19:01 Budesonide (Pulmicort Respules) 0.5 mg IH [id number] [facility] Last Admin: 08/10/18 07:23 Dose: 0.5 mg Clonazepam (Klonopin) 1 mg PO BID [facility]; Protocol Last Admin: 08/10/18 10:59 Dose: 1 mg Cyclobenzaprine HCl (Flexeril) 10 mg PO TID [facility] Last Admin: 08/10/18 10:59 Dose: 10 mg Doxycycline Hyclate (Doryx) 100 mg PO Q12 [facility]; Protocol Last Admin: 08/10/18 10:58 Dose: 100 mg Enoxaparin Sodium (Lovenox) 30 mg SC DAILY [facility]; Protocol Last Admin: 08/10/18 10:59 Dose: 30 mg Ampicillin Sodium/Sulbactam (Sodium 3 gm/ Sodium Chloride) 100 mls @ 200 mls/hr IVPB Q6 [facility]; Protocol Last Admin: 08/10/18 06:20 Dose: 200 mls/hr Oxycodone HCl (Oxycodone Immediate Release Tab) 15 mg PO Q6H PRN PRN Reason: Pain, severe (8-10) Last Admin: 08/10/18 12:21 Dose: 15 mg Oxycodone HCl (Oxycontin Extended Release Tab) 80 mg PO Q12 [facility] Pantoprazole Sodium (Protonix Ec Tab) 40 mg PO DAILY [facility] Last Admin: 08/10/18 10:59 Dose: 40 mg Sertraline HCl (Zoloft) 100 mg PO QAM [facility] Last Admin: 08/10/18 10:59 Dose: 100 mg - Labs Labs: 08/10/18 07:00 08/10/18 07:00 - Constitutional Appears: Non-toxic, No Acute Distress - Head Exam Head Exam: ATRAUMATIC, NORMOCEPHALIC - Eye Exam Eye Exam: EOMI, PERRL. absent: Scleral icterus Pupil Exam: PERRL. absent: Miosis, Mydriatic - ENT Exam ENT Exam: Mucous Membranes Moist, Normal Oropharynx - Neck Exam Neck Exam: Full ROM, Normal Inspection - Respiratory Exam Respiratory Exam: Clear to Ausculation Bilateral. absent: Rales, Rhonchi, Wheezes - Cardiovascular Exam Cardiovascular Exam: RRR, +S1, +S2. absent: Gallop, Rubs - GI/Abdominal Exam GI & Abdominal Exam: Soft, Normal Bowel Sounds. absent: Distended, Firm, Guarding, Rigid, Tenderness, Organomegaly, Rebound - Extremities Exam Extremities Exam: Normal Inspection. absent: Pedal Edema - Neurological Exam Neurological Exam: Alert, Awake - Psychiatric Exam Psychiatric exam: Normal Affect, Normal Mood - Skin Skin Exam: Dry, Intact, Normal Color, Warm Assessment and Plan - Assessment and Plan (Free Text) Assessment: 57 year old male with PMH of esophageal stricture s/p multiple dilations (most recent 12/2017) complicated by recurrent aspiration pneumonia and chronic back pain presenting with shortness of breath. Active treatment of acute bronchitis. GI consultation for anemia and history of esophageal stricture. Multiple prior EGD for stricture dilations from 04/2016 to EGD 12/2017 showing esophageal stricture at 18cm from incisors s/p sequential Savory dilation from 24 R[place]an to 36 [place] without complication. No prior colonoscopy. Plan: -H/H stable at baseline -iron deficiency noted on iron panel -clear liquid diet -Colonoscopy tomorrow,Wed, 08/11/18 -Golytely and Dulcolax today -NPO after midnight -pulmonology and ID managing Bronchitis -pending esophagram -will follow clinical course <Candido Hanson V - Last Filed: 08/10/18 23:55> Objective - Vital Signs/Intake and Output Vital Signs (last 24 hours): Temp Pulse Resp BP Pulse Ox 98.9 F 72 20 103/61 96 08/10/18 23:18 08/10/18 23:18 08/10/18 23:18 08/10/18 23:18 08/10/18 23:18 Intake and Output: 08/10/18 08/11/18 18:59 06:59 Intake Total 720 600 Balance 720 600 - Medications Medications: Current Medications Acetaminophen (Tylenol 325mg Tab) 650 mg PO Q4H PRN PRN Reason: Pain, Mild (1-3) Acetylcysteine (Acetylcysteine 20%) 4 ml IH BIDRESP [facility] Last Admin: 08/10/18 20:09 Dose: Not Given Albuterol/Ipratropium (Duoneb 3 Mg/0.5 Mg (3 Ml) Ud) 3 ml IH Q4H PRN PRN Reason: Shortness of Breath Last Admin: 08/10/18 13:55 Dose: 3 ml Arformoterol Tartrate (Brovana) 15 mcg IH [id number] [facility] Last Admin: 08/10/18 20:09 Dose: Not Given Budesonide (Pulmicort Respules) 0.5 mg IH [id number] [facility] Last Admin: 08/10/18 20:09 Dose: Not Given Clonazepam (Klonopin) 1 mg PO BID [facility]; Protocol Last Admin: 08/10/18 17:14 Dose: 1 mg Cyclobenzaprine HCl (Flexeril) 10 mg PO TID [facility] Last Admin: 08/10/18 20:00 Dose: 10 mg Doxycycline Hyclate (Doryx) 100 mg PO Q12 [facility]; Protocol Last Admin: 08/10/18 22:03 Dose: 100 mg Enoxaparin Sodium (Lovenox) 30 mg SC DAILY [facility]; Protocol Last Admin: 08/10/18 10:59 Dose: 30 mg Ampicillin Sodium/Sulbactam (Sodium 3 gm/ Sodium Chloride) 100 mls @ 200 mls/hr IVPB Q6 [facility]; Protocol Last Admin: 08/10/18 17:09 Dose: 200 mls/hr Oxycodone HCl (Oxycodone Immediate Release Tab) 15 mg PO Q6H PRN PRN Reason: Pain, severe (8-10) Last Admin: 08/10/18 12:21 Dose: 15 mg Oxycodone HCl (Oxycontin Extended Release Tab) 80 mg PO Q12 [facility] Last Admin: 08/10/18 22:04 Dose: 80 mg Pantoprazole Sodium (Protonix Ec Tab) 40 mg PO DAILY [facility] Last Admin: 08/10/18 10:59 Dose: 40 mg Sertraline HCl (Zoloft) 100 mg PO QAM [facility] Last Admin: 08/10/18 10:59 Dose: 100 mg - Labs Labs: 08/10/18 07:00 08/10/18 07:00 Attending/Attestation - Attestation I have personally seen and examined this patient.: Yes I have fully participated in the care of the patient.: Yes I have reviewed all pertinent clinical information, including history, physical exam and plan: Yes Notes (Text): This is an addendum to GI progress report dictated by the GI Fellow. The patient was seen and examined earlier. Medical records, lab studies, imagings were reviewed. Last 24 hours events reviewed. Agreed with the above treatment plan as outlined in GI Fellow 's notes with the addition of the following 08/10/18 23:55
--- NOTE | 2018-08-10 13:54 | CP.PCM.PCO ---
Physician Communication Note - Physician Communication Note Physician Communication Note: Per PMD, pt sched for colonoscopy tomorrow
--- NOTE | 2018-08-10 15:05 | CP.PCM.PN ---
<Alirio Feng - Last Filed: 08/10/18 15:02> Subjective - Date & Time of Evaluation Date of Evaluation: 08/10/18 Time of Evaluation: 07:00 - Subjective Subjective: ID progress note Patient seen and examined. No acute events overnight. No fevers. Objective - Vital Signs/Intake and Output Vital Signs (last 24 hours): Temp Pulse Resp BP Pulse Ox 97.8 F 73 18 110/72 97 08/10/18 06:00 08/10/18 09:01 08/10/18 06:00 08/10/18 06:00 08/10/18 06:00 Intake and Output: 08/10/18 08/10/18 06:59 18:59 Intake Total 720 Balance 720 - Medications Medications: Current Medications Acetaminophen (Tylenol 325mg Tab) 650 mg PO Q4H PRN PRN Reason: Pain, Mild (1-3) Acetylcysteine (Acetylcysteine 20%) 4 ml IH BIDRESP [facility] Last Admin: 08/10/18 07:23 Dose: 4 ml Albuterol/Ipratropium (Duoneb 3 Mg/0.5 Mg (3 Ml) Ud) 3 ml IH Q4H PRN PRN Reason: Shortness of Breath Last Admin: 08/10/18 13:55 Dose: 3 ml Arformoterol Tartrate (Brovana) 15 mcg IH [id number] [facility] Last Admin: 08/10/18 07:22 Dose: 15 mcg Bisacodyl (Dulcolax) 10 mg PO ONCE ONE Stop: 08/10/18 19:01 Budesonide (Pulmicort Respules) 0.5 mg IH [id number] [facility] Last Admin: 08/10/18 07:23 Dose: 0.5 mg Clonazepam (Klonopin) 1 mg PO BID [facility]; Protocol Last Admin: 08/10/18 10:59 Dose: 1 mg Cyclobenzaprine HCl (Flexeril) 10 mg PO TID [facility] Last Admin: 08/10/18 10:59 Dose: 10 mg Doxycycline Hyclate (Doryx) 100 mg PO Q12 [facility]; Protocol Last Admin: 08/10/18 10:58 Dose: 100 mg Enoxaparin Sodium (Lovenox) 30 mg SC DAILY [facility]; Protocol Last Admin: 08/10/18 10:59 Dose: 30 mg Ampicillin Sodium/Sulbactam (Sodium 3 gm/ Sodium Chloride) 100 mls @ 200 mls/hr IVPB Q6 [facility]; Protocol Last Admin: 08/10/18 06:20 Dose: 200 mls/hr Oxycodone HCl (Oxycodone Immediate Release Tab) 15 mg PO Q6H PRN PRN Reason: Pain, severe (8-10) Last Admin: 08/10/18 12:21 Dose: 15 mg Oxycodone HCl (Oxycontin Extended Release Tab) 80 mg PO Q12 [facility] Pantoprazole Sodium (Protonix Ec Tab) 40 mg PO DAILY [facility] Last Admin: 08/10/18 10:59 Dose: 40 mg Sertraline HCl (Zoloft) 100 mg PO QAM [facility] Last Admin: 08/10/18 10:59 Dose: 100 mg - Labs Labs: 08/10/18 07:00 08/10/18 07:00 - Constitutional Appears: Non-toxic, No Acute Distress - Head Exam Head Exam: ATRAUMATIC, NORMAL INSPECTION, NORMOCEPHALIC - ENT Exam ENT Exam: Mucous Membranes Moist - Respiratory Exam Respiratory Exam: Decreased Breath Sounds, NORMAL BREATHING PATTERN - Cardiovascular Exam Cardiovascular Exam: RRR, +S1 - GI/Abdominal Exam GI & Abdominal Exam: Soft, Normal Bowel Sounds. absent: Tenderness - Extremities Exam Extremities Exam: Normal Inspection. absent: Pedal Edema - Neurological Exam Neurological Exam: Alert, Awake, Oriented x3 - Psychiatric Exam Psychiatric exam: Normal Affect, Normal Mood - Skin Skin Exam: Intact, Normal Color, Warm Assessment and Plan - Assessment and Plan (Free Text) Plan: Acute Bronchitis Hx of Esophageal strictures Hx of aspiration pneumonia Hx of chronic back pain Plan Continue on Doxycycline Unasyn added as per pulmonary Chest x-ray reviewed Procal elevated Flu negative Blood cultures negative Colonoscopy tomorrow as per GI Continue to monitor closely Jung, PGY-3 <Brian Sevilla - Last Filed: 08/10/18 16:05> Objective - Vital Signs/Intake and Output Vital Signs (last 24 hours): Temp Pulse Resp BP Pulse Ox 97.8 F 73 18 110/72 97 08/10/18 06:00 08/10/18 09:01 08/10/18 06:00 08/10/18 06:00 08/10/18 06:00 Intake and Output: 08/10/18 08/10/18 06:59 18:59 Intake Total 720 Balance 720 - Medications Medications: Current Medications Acetaminophen (Tylenol 325mg Tab) 650 mg PO Q4H PRN PRN Reason: Pain, Mild (1-3) Acetylcysteine (Acetylcysteine 20%) 4 ml IH BIDRESP [facility] Last Admin: 08/10/18 07:23 Dose: 4 ml Albuterol/Ipratropium (Duoneb 3 Mg/0.5 Mg (3 Ml) Ud) 3 ml IH Q4H PRN PRN Reason: Shortness of Breath Last Admin: 08/10/18 13:55 Dose: 3 ml Arformoterol Tartrate (Brovana) 15 mcg IH [id number] [facility] Last Admin: 08/10/18 07:22 Dose: 15 mcg Bisacodyl (Dulcolax) 10 mg PO ONCE ONE Stop: 08/10/18 19:01 Budesonide (Pulmicort Respules) 0.5 mg IH [id number] [facility] Last Admin: 08/10/18 07:23 Dose: 0.5 mg Clonazepam (Klonopin) 1 mg PO BID [facility]; Protocol Last Admin: 08/10/18 10:59 Dose: 1 mg Cyclobenzaprine HCl (Flexeril) 10 mg PO TID [facility] Last Admin: 08/10/18 10:59 Dose: 10 mg Doxycycline Hyclate (Doryx) 100 mg PO Q12 [facility]; Protocol Last Admin: 08/10/18 10:58 Dose: 100 mg Enoxaparin Sodium (Lovenox) 30 mg SC DAILY [facility]; Protocol Last Admin: 08/10/18 10:59 Dose: 30 mg Ampicillin Sodium/Sulbactam (Sodium 3 gm/ Sodium Chloride) 100 mls @ 200 mls/hr IVPB Q6 [facility]; Protocol Last Admin: 08/10/18 06:20 Dose: 200 mls/hr Oxycodone HCl (Oxycodone Immediate Release Tab) 15 mg PO Q6H PRN PRN Reason: Pain, severe (8-10) Last Admin: 08/10/18 12:21 Dose: 15 mg Oxycodone HCl (Oxycontin Extended Release Tab) 80 mg PO Q12 [facility] Pantoprazole Sodium (Protonix Ec Tab) 40 mg PO DAILY [facility] Last Admin: 08/10/18 10:59 Dose: 40 mg Sertraline HCl (Zoloft) 100 mg PO QAM [facility] Last Admin: 08/10/18 10:59 Dose: 100 mg - Labs Labs: 08/10/18 07:00 08/10/18 07:00 Assessment and Plan - Assessment and Plan (Free Text) Plan: Infectious diseases Attending Physician Attestation Patient seen and examined, discussed with medical coder. I have reviewed the patient's history of present illness, past medical, social, personal and family histories, pertinent physical exam findings, course so far in this hospital admission, pertinent laboratory and imaging results. I agree with the above findings, assessment and plan. In addition, continue Doxycycline for patient with acute bronchitis. Pulmonary started Unasyn for possible recurrent pneumonia. Will monitor clinically.
--- NOTE | 2018-08-10 16:38 | RAD ---
Date of service: 08/10/2018 HISTORY: Dysphagia. COMPARISON: None. TECHNIQUE: Single contrast esophagram was performed. FINDINGS: Patient tolerated procedure well. ESOPHAGUS: Esophageal mucosa appeared preserved. No evidence of stricture or mass lesion. HIATAL HERNIA: None demonstrated. GASTROESOPHAGEAL REFLUX: Not demonstrated. OTHER FINDINGS: There is minimal aspiration into the proximal larynx and trachea with contrast coating the wall. There is no contrast seen in the josi. IMPRESSION: No evidence of esophageal stricture. Minimal aspiration into the proximal trachea and larynx.
[2018-08-10] MEDS ORDERED: Bisacodyl 5mg EC Tab PO ONE ×3 (19:00→23:18)
[2018-08-10] MEDS: oxyCODONE 80 mg ER Tab (oxyCONTIN) PO SCH (22:04)
[2018-08-10] MEDS ORDERED: Magnesium Citrate Oral SOL (300 ml) PO ONE (23:10)
[2018-08-11] MEDS ORDERED: Bisacodyl 5mg EC Tab PO ONE (07:00)
[2018-08-11] MEDS ORDERED: Magnesium Citrate Oral SOL (300 ml) PO ONE (07:00)
[2018-08-11] MEDS: oxyCODONE 5 mg Immediate Release Tab PO PRN (07:17)
[2018-08-11] MEDS: Acetylcysteine 20% Inhal Soln (4ml) IH SCH ×2 (07:21→19:30)
[2018-08-11] MEDS: Arformoterol 15 mcg/2 ml Inh Sol IH SCH ×2 (07:22→19:30)
[2018-08-11] MEDS: Budesonide 0.5 mg/2 ml Inhal Susp UD IH SCH ×2 (07:22→19:31)
[2018-08-11] MEDS: Pantoprazole 40 mg EC Tab PO SCH (09:35)
[2018-08-11] MEDS: oxyCODONE 80 mg ER Tab (oxyCONTIN) PO SCH ×2 (10:00→21:43)
--- NOTE | 2018-08-11 10:04 | CP.PCM.APN ---
Subjective - Date & Time of Evaluation Date of Evaluation: 08/11/18 Time of Evaluation: 10:00 - Subjective Subjective: Pt seen and examined at bedside. Still c/o cough but states that he is feeling better. Denies chest pain or shortness of breath. Objective - Vital Signs/Intake and Output Vital Signs (last 24 hours): Temp Pulse Resp BP Pulse Ox 98.1 F 77 18 115/68 98 08/11/18 06:00 08/11/18 06:00 08/11/18 06:00 08/11/18 06:00 08/11/18 06:00 Intake and Output: 08/11/18 08/11/18 06:59 18:59 Intake Total 600 Balance 600 - Medications Medications: Current Medications Acetaminophen (Tylenol 325mg Tab) 650 mg PO Q4H PRN PRN Reason: Pain, Mild (1-3) Acetylcysteine (Acetylcysteine 20%) 4 ml IH BIDRESP [facility] Last Admin: 08/11/18 07:21 Dose: 4 ml Albuterol/Ipratropium (Duoneb 3 Mg/0.5 Mg (3 Ml) Ud) 3 ml IH Q4H PRN PRN Reason: Shortness of Breath Last Admin: 08/10/18 13:55 Dose: 3 ml Arformoterol Tartrate (Brovana) 15 mcg IH [id number] [facility] Last Admin: 08/11/18 07:22 Dose: 15 mcg Budesonide (Pulmicort Respules) 0.5 mg IH [id number] [facility] Last Admin: 08/11/18 07:22 Dose: 0.5 mg Clonazepam (Klonopin) 1 mg PO BID [facility]; Protocol Last Admin: 08/11/18 09:35 Dose: Not Given Cyclobenzaprine HCl (Flexeril) 10 mg PO TID [facility] Last Admin: 08/11/18 09:34 Dose: Not Given Doxycycline Hyclate (Doryx) 100 mg PO Q12 [facility]; Protocol Last Admin: 08/11/18 09:34 Dose: Not Given Enoxaparin Sodium (Lovenox) 30 mg SC DAILY [facility]; Protocol Last Admin: 08/10/18 10:59 Dose: 30 mg Ampicillin Sodium/Sulbactam (Sodium 3 gm/ Sodium Chloride) 100 mls @ 200 mls/hr IVPB Q6 [facility]; Protocol Last Admin: 08/11/18 06:57 Dose: 200 mls/hr Oxycodone HCl (Oxycodone Immediate Release Tab) 15 mg PO Q6H PRN PRN Reason: Pain, severe (8-10) Last Admin: 08/11/18 07:17 Dose: 15 mg Oxycodone HCl (Oxycontin Extended Release Tab) 80 mg PO Q12 [facility] Last Admin: 08/10/18 22:04 Dose: 80 mg Pantoprazole Sodium (Protonix Ec Tab) 40 mg PO DAILY [facility] Last Admin: 08/11/18 09:35 Dose: Not Given Sertraline HCl (Zoloft) 100 mg PO QAM [facility] Last Admin: 08/10/18 10:59 Dose: 100 mg - Labs Labs: 08/10/18 07:00 08/10/18 07:00 - Constitutional Appears: No Acute Distress - Head Exam Head Exam: NORMOCEPHALIC - Neck Exam Neck Exam: Full ROM - Respiratory Exam Respiratory Exam: Rhonchi - Cardiovascular Exam Cardiovascular Exam: REGULAR RHYTHM, +S1, +S2 - GI/Abdominal Exam GI & Abdominal Exam: Soft, Normal Bowel Sounds - Rectal Exam Rectal Exam: Deferred - Extremities Exam Extremities Exam: Normal Inspection - Neurological Exam Neurological Exam: Alert, Awake, Oriented x3 Assessment and Plan - Assessment and Plan (Free Text) Assessment: pt is a 57 y.o. male with pmhx of esophageal stricture, recurrent aspiration pneumonia, and chronic back pain, who presented to ED w/ c/o shortness of breath. Patient states he has been experiencing shortness of breath and cough ov er the past week. He is currently being treated for recurrent aspiration pneumonia. ITS Impressions Chest X-Ray 08/08/18 23:19 IMPRESSION: Chronic scarring at the right lung base and elevation of the right hemidiaphragm. No acute findings Esophagus X-Ray 08/10/18 14:26 IMPRESSION: No evidence of esophageal stricture. Minimal aspiration into the proximal trachea and larynx. Plan: On Doxy per ID Unsayn IV added by Pulm Pending colonoscopy today per GI Meds per MAR Will continue to follow
--- NOTE | 2018-08-11 12:09 | CT ---
Date of service: 08/11/2018 PROCEDURE: CT Chest without contrast HISTORY: r/o pneumonia COMPARISON: 10/04/2014. CT thorax. Summary of findings on the comparison examination:Chronic alveolar infiltrates in the right middle and lower lobes. Minimal interstitial infiltrates in the left lower lobe. No evidence of pleural effusion 08/08/2018 two-view chest TECHNIQUE: Contiguous axial images were obtained through the chest without intravenous contrast enhancement. Sagittal and coronal reconstructions were performed. Radiation dose: Total exam DLP = 226.38 mGy-cm. This CT exam was performed using one or more of the following dose reduction techniques: Automated exposure control, adjustment of the mA and/or kV according to patient size, and/or use of iterative reconstruction technique. FINDINGS: LUNGS: Underlying interstitial lung disease a stable finding. This affects both lungs with a lower lobe predilection. Chronic infiltrates affecting multiple segments of the right lower lobe. Prominent bronchi in this area may reflect a component bronchiectasis. MEDIASTINUM: Unremarkable thoracic aorta. No aneurysm. Normal sized heart. Main pulmonary artery unremarkable. No vascular congestion. No lymphadenopathy. No aortic atherosclerotic calcification. PLEURA: No pleural fluid. No pneumothorax. BONES: No fracture. No destructive lesion. UPPER ABDOMEN: Grossly unremarkable. OTHER FINDINGS: None. IMPRESSION: Chronic interstitial lung disease. Chronic infiltrates right lower lobe. There is a component of volume loss secondary to these chronic findings. No acute findings/interval changes.
[2018-08-11 13:35] LABS: INR 1.37; PROTHROMBIN TIME 15.2 SECONDS (9.4-12.5)
[2018-08-11 13:39] LABS: ALBUMIN 4.5 g/dL (3.0-4.8); ALT/SGPT 18 U/L (7-56); AST/SGOT 32 U/L (17-59); BLOOD UREA NITROGEN 3 mg/dL (7-21); CALCIUM 9.2 mg/dL (8.4-10.5); GFR NON-AFRICAN AMERICAN > 60
--- NOTE | 2018-08-11 14:54 | CP.PCM.PN ---
<Alirio Feng - Last Filed: 08/11/18 14:52> Subjective - Date & Time of Evaluation Date of Evaluation: 08/11/18 Time of Evaluation: 11:10 - Subjective Subjective: ID Progress Note Patient seen and examined. Patient with no complaints. Improvement in cough. No fevers. Objective - Vital Signs/Intake and Output Vital Signs (last 24 hours): Temp Pulse Resp BP Pulse Ox 98.1 F 77 18 115/68 98 08/11/18 06:00 08/11/18 06:00 08/11/18 06:00 08/11/18 06:00 08/11/18 12:09 Intake and Output: 08/11/18 08/11/18 06:59 18:59 Intake Total 600 Balance 600 - Medications Medications: Current Medications Acetaminophen (Tylenol 325mg Tab) 650 mg PO Q4H PRN PRN Reason: Pain, Mild (1-3) Acetylcysteine (Acetylcysteine 20%) 4 ml IH BIDRESP ANASTACIO Last Admin: 08/11/18 07:21 Dose: 4 ml Albuterol/Ipratropium (Duoneb 3 Mg/0.5 Mg (3 Ml) Ud) 3 ml IH Q4H PRN PRN Reason: Shortness of Breath Last Admin: 08/10/18 13:55 Dose: 3 ml Arformoterol Tartrate (Brovana) 15 mcg IH [id number] ANASTACIO Last Admin: 08/11/18 07:22 Dose: 15 mcg Budesonide (Pulmicort Respules) 0.5 mg IH [id number] ANASTACIO Last Admin: 08/11/18 07:22 Dose: 0.5 mg Clonazepam (Klonopin) 1 mg PO BID [facility]; Protocol Last Admin: 08/11/18 09:35 Dose: Not Given Cyclobenzaprine HCl (Flexeril) 10 mg PO TID ANASTACIO Last Admin: 08/11/18 13:52 Dose: Not Given Doxycycline Hyclate (Doryx) 100 mg PO Q12 [facility]; Protocol Last Admin: 08/11/18 09:34 Dose: Not Given Enoxaparin Sodium (Lovenox) 30 mg SC DAILY [facility]; Protocol Last Admin: 08/10/18 10:59 Dose: 30 mg Ampicillin Sodium/Sulbactam (Sodium 3 gm/ Sodium Chloride) 100 mls @ 200 mls/hr IVPB Q6 [facility]; Protocol Last Admin: 08/11/18 11:20 Dose: 200 mls/hr Oxycodone HCl (Oxycodone Immediate Release Tab) 15 mg PO Q6H PRN PRN Reason: Pain, severe (8-10) Last Admin: 08/11/18 07:17 Dose: 15 mg Oxycodone HCl (Oxycontin Extended Release Tab) 80 mg PO Q12 [facility] Last Admin: 08/11/18 10:00 Dose: Not Given Pantoprazole Sodium (Protonix Ec Tab) 40 mg PO DAILY [facility] Last Admin: 08/11/18 09:35 Dose: Not Given Sertraline HCl (Zoloft) 100 mg PO QAM [facility] Last Admin: 08/11/18 10:46 Dose: Not Given - Labs Labs: 08/10/18 07:00 08/11/18 13:10 PT 15.2 SECONDS (9.4-12.5) H 08/11/18 13:10 INR 1.37 08/11/18 13:10 - Constitutional Appears: Non-toxic, No Acute Distress - Head Exam Head Exam: ATRAUMATIC, NORMAL INSPECTION, NORMOCEPHALIC - ENT Exam ENT Exam: Mucous Membranes Moist - Respiratory Exam Respiratory Exam: Decreased Breath Sounds, NORMAL BREATHING PATTERN - Cardiovascular Exam Cardiovascular Exam: RRR, +S1, +S2 - GI/Abdominal Exam GI & Abdominal Exam: Soft, Normal Bowel Sounds. absent: Tenderness - Extremities Exam Extremities Exam: absent: Pedal Edema - Neurological Exam Neurological Exam: Alert, Awake, Oriented x3 - Psychiatric Exam Psychiatric exam: Normal Affect, Normal Mood - Skin Skin Exam: Dry, Intact, Warm Assessment and Plan - Assessment and Plan (Free Text) Plan: Acute Bronchitis Hx of Esophageal strictures Hx of aspiration pneumonia Hx of chronic back pain Plan Continue on Doxycycline and Unasyn Chest CT demonstrates chronic right lower lobe infiltrates Procal elevated Flu negative Blood cultures negative Continue to monitor closely Jung, PGY-3 <Brian Sevilla - Last Filed: 08/11/18 15:07> Objective - Vital Signs/Intake and Output Vital Signs (last 24 hours): Temp Pulse Resp BP Pulse Ox 98.1 F 77 18 115/68 98 08/11/18 06:00 08/11/18 06:00 08/11/18 06:00 08/11/18 06:00 08/11/18 12:09 Intake and Output: 08/11/18 08/11/18 06:59 18:59 Intake Total 600 Balance 600 - Medications Medications: Current Medications Acetaminophen (Tylenol 325mg Tab) 650 mg PO Q4H PRN PRN Reason: Pain, Mild (1-3) Acetylcysteine (Acetylcysteine 20%) 4 ml IH BIDRESP ANASTACIO Last Admin: 08/11/18 07:21 Dose: 4 ml Albuterol/Ipratropium (Duoneb 3 Mg/0.5 Mg (3 Ml) Ud) 3 ml IH Q4H PRN PRN Reason: Shortness of Breath Last Admin: 08/10/18 13:55 Dose: 3 ml Arformoterol Tartrate (Brovana) 15 mcg IH [id number] ANASTACIO Last Admin: 08/11/18 07:22 Dose: 15 mcg Budesonide (Pulmicort Respules) 0.5 mg IH [id number] [facility]ACIO Last Admin: 08/11/18 07:22 Dose: 0.5 mg Clonazepam (Klonopin) 1 mg PO BID [facility]; Protocol Last Admin: 08/11/18 09:35 Dose: Not Given Cyclobenzaprine HCl (Flexeril) 10 mg PO TID [facility]IO Last Admin: 08/11/18 13:52 Dose: Not Given Doxycycline Hyclate (Doryx) 100 mg PO Q12 [facility]; Protocol Last Admin: 08/11/18 09:34 Dose: Not Given Enoxaparin Sodium (Lovenox) 30 mg SC DAILY [facility]; Protocol Last Admin: 08/10/18 10:59 Dose: 30 mg Ampicillin Sodium/Sulbactam (Sodium 3 gm/ Sodium Chloride) 100 mls @ 200 mls/hr IVPB Q6 [facility]; Protocol Last Admin: 08/11/18 11:20 Dose: 200 mls/hr Oxycodone HCl (Oxycodone Immediate Release Tab) 15 mg PO Q6H PRN PRN Reason: Pain, severe (8-10) Last Admin: 08/11/18 07:17 Dose: 15 mg Oxycodone HCl (Oxycontin Extended Release Tab) 80 mg PO Q12 [facility] Last Admin: 08/11/18 10:00 Dose: Not Given Pantoprazole Sodium (Protonix Ec Tab) 40 mg PO DAILY [facility] Last Admin: 08/11/18 09:35 Dose: Not Given Sertraline HCl (Zoloft) 100 mg PO QAM [facility] Last Admin: 08/11/18 10:46 Dose: Not Given - Labs Labs: 08/10/18 07:00 08/11/18 13:10 PT 15.2 SECONDS (9.4-12.5) H 08/11/18 13:10 INR 1.37 08/11/18 13:10 Assessment and Plan - Assessment and Plan (Free Text) Plan: Infectious diseases Attending Physician Attestation Patient seen and examined, discussed with medical representative. I have reviewed the patient's history of present illness, past medical, social, personal and family histories, pertinent physical exam findings, course so far in this hospital admission, pertinent laboratory and imaging results. I agree with the above findings, assessment and plan. In addition, continue Doxycycline for acute bronchitis. Patient was started on Unasyn by Pulmonary for apparent recurrent pneumonia. Will follow up CT chest. PCT is slightly elevated at 0.57.
--- NOTE | 2018-08-11 16:39 | PN ---
DATE: 08/11/2018 PULMONARY PROGRESS NOTE REFERRING PHYSICIAN: Ishaan Dela Cruz MD SUBJECTIVE: The patient is sitting at bedside. No acute distress. No overnight events reported. The patient is scheduled for colonoscopy today. Reports still having cough. Denies shortness of breath headache, rhinitis, chest pain, abdominal pain, nausea, vomiting, diarrhea, leg pain or leg swelling reported. OBJECTIVE: GENERAL: No acute distress. VITAL SIGNS: Blood pressure 115/68, pulse 77, temperature 98.1, and oxygen saturation 98% on room air. HEENT: Moist mucous membranes. Crowded airway. Mallampati score 4. NECK: Supple. No JVD. LUNGS: Few rhonchi bilaterally, crackles at the bases. CARDIOVASCULAR: S1 and S2 audible. ABDOMEN: Soft and nontender. No distention. No organomegaly. EXTREMITIES: No bilateral lower extremity edema. NEUROLOGIC: Awake, alert, verbal, and follows commands. MEDICATIONS: Reviewed. Tylenol 650 mg every 4 hours p.r.n. for mild pain, Mucomyst 4 mL inhalation twice a day, Duoneb 3 mL inhalation every 4 hours p.r.n., Unasyn 3 grams every 6 hours, Brovana 15 mcg every 12 hours, Pulmicort 0.5 mg every 12 hours, Klonopin 1 mg twice a day, Flexeril 10 mg three times a day, doxycycline 100 mg every 12 hours, Lovenox 30 mg subcutaneous daily, oxycodone 15 mg every 6 hours p.r.n., oxycodone extended release 80 mg every 12 hours, Protonix 40 mg daily, and Zoloft 100 mg daily. LABORATORY DATA: Reviewed. PT 16.2 and INR 1.37. Sodium 147, potassium 3.3, chloride 104, carbon dioxide 33, anion gap 13, BUN 3, creatinine 0.6, GFR greater than 60, random glucose 110. Calcium 9.2, magnesium 2.5, total bilirubin 0.5, AST 32, ALT 18, alkaline phosphatase 95, total protein 9.0, albumin 4.5, globulin 4.5, albumin and globulin ratio 1.0. Blood cultures pulmonary, no growth after 48 hours. Esophagus x-ray shows no evidence of esophageal stricture, minimal aspiration into the proximal trachea and larynx. Chest CT showed chronic interstitial lung disease, chronic infiltrates, right lower lobe. There is a component of volume loss secondary to these chronic findings. IMPRESSION AND PLAN: Recurrent aspiration pneumonia with positive procalcitonin level, history of esophageal stricture, chronic back pain, acute bronchitis. Continue gastrointestinal followup for esophageal stricture, the patient is scheduled for colonoscopy today. Continue inhaled bronchodilators, gastric prophylaxis, and deep venous thrombosis prophylaxis. Aspiration precautions, head of bed elevated 45 degrees, and fall precautions. We will continue Unasyn at this time. The patient seen and examined with Dr. Vaughan. Discussed assessment and plan as described above. The patient seen and examined with Wayne Campoverde, nurse practitioner. Discussed assessment and plan as described above. Thank you for this consult. We will follow with you. Wayne Campoverde APN Arnav Vaughan MD
[2018-08-11] MEDS ORDERED: Propofol 10 mg/ml Inj (20 ML) ONE (17:16)
[2018-08-11] MEDS ORDERED: Sodium Chloride 0.9% 1,000 ML IV SCH (17:30)
[2018-08-11] MEDS ORDERED: Potassium Chloride 20 mEq ER Tab PO STA (19:57)
--- NOTE | 2018-08-11 21:52 | PN ---
DATE: 08/11/2018 SUBJECTIVE: Patient is a colonoscopy as a full preparation colonoscopy, but there was no evidence of any colon cancer noted and did tolerated the procedure well and suction and colonoscopy up to the caecum. There is no any significant finding except his anemia. The patient is otherwise stable. PHYSICAL EXAMINATION: VITAL SIGNS: No change. Vitals are stable. Temperature 97, heart rate 60, blood pressure 106/47, respirations unchanged. Saturation 98% on 2 liters. HEENT: Head and neck normal. NECK: No rigidity. No thyromegaly. CHEST: Clear bilaterally. CARDIAC: First sound and second sound normal. ABDOMEN: Soft and nontender. EXTREMITIES: No edema. NEUROLOGIC: Normal. LABORATORY DATA: Noted. Potassium 3.3, sodium 147, chloride 104, bicarb 33, BUN 3, creatinine 0.6, magnesium 2.5. Liver function test is normal. IMPRESSION: 1. Recurrent aspiration pneumonia. Continuous Zosyn, doxycycline along with a pulmonary consult. CT chest shows chronic scarring and chronic infiltrates. Continue current IV antibiotic, continue inhaled bronchodilators. Follow up with the pulmonary consult. 2. Anemia, etiology is unclear. Gastrointestinal workup has been done. EGD was doing a in the past. However, colonoscopy today was negative. We will get CT abdomen and pelvis IV contrast and we will get Dr. Simmons's Oncology consult. 3. Chronic back pain. Continue oxycodone 15 mg every 6, has been decreased from before. Previously was 30 mg. Also continue OxyContin, which has been decreased from to 80 every 12. Continue monitor his condition clinically. 4. Chronic anxiety. Patient has been Zoloft and Klonopin for years. Decrease the dose of Klonopin to 1 mg twice a day from 4 mg in the past. PLAN: Continue current therapy. Follow up clinically and we will start the patient on IV fluid. Get CT in the morning of abdomen and pelvis. Ishaan Little MD
[2018-08-11] MEDS ORDERED: Barium Sulfate Susp 2.1% w/v, 2.0% w/w 450 mL Bottle PO ONE (22:48)
[2018-08-12 07:27] LABS: HEMOGLOBIN 9.6 g/dL (14.0-18.0); MEAN CELL VOLUME 83.7 fl (80.0-105.0); MEAN CORPUSCULAR HGB CONC 31.1 g/dl (31.0-37.0); MEAN PLATELET VOLUME 8.9 fl (7.0-11.0); RBC 3.69 10^6/uL (3.5-6.1); WHITE BLOOD COUNT 10.2 10^3/uL (4.5-11.0)
[2018-08-12] MEDS: Budesonide 0.5 mg/2 ml Inhal Susp UD IH SCH ×2 (07:37→20:05)
[2018-08-12] MEDS: Acetylcysteine 20% Inhal Soln (4ml) IH SCH ×2 (07:37→20:06)
[2018-08-12] MEDS: Arformoterol 15 mcg/2 ml Inh Sol IH SCH ×2 (07:37→20:05)
[2018-08-12 07:44] LABS: ALBUMIN 3.4 g/dL (3.0-4.8); ALT/SGPT 15 U/L (7-56); AST/SGOT 35 U/L (17-59); BLOOD UREA NITROGEN 3 mg/dL (7-21); CALCIUM 8.1 mg/dL (8.4-10.5); GFR NON-AFRICAN AMERICAN > 60
[2018-08-12] MEDS ORDERED: Iohexol 350 MG/100 ML VIAL ONE (08:41)
--- NOTE | 2018-08-12 08:44 | PN ---
DATE: 08/10/2018 SUBJECTIVE: The patient was seen today. He has problem with the pain medicines and Klonopin; however, he is scheduled for colonoscopy in the morning. The patient has no chest pain, no short of breath and still getting IV antibiotics. He is on Zosyn and doxycycline and seen by ID consult. PHYSICAL EXAMINATION: VITAL SIGNS: As follows: Temperature is 98.9, heart rate 72, blood pressure 106/78, respirations 20, and saturation 99%. HEAD AND NECK: Normal. No JVD. No thyromegaly. CHEST: Rhonchi bilaterally, right more than left on the bases. CARDIAC: First sound and second sound are normal. ABDOMEN: Soft and nontender. EXTREMITIES: No edema. NEUROLOGIC: Normal. LABORATORY DATA: His laboratory study shows white count 6.9, hemoglobin 9.7, hematocrit 31.4, platelets 262. Chemistry: Sodium 138, potassium 3.6, chloride 101, bicarb 31, BUN 9, creatinine 0.6. His transferrin is 277. His liver function test is normal. IMPRESSION AND PLAN: 1. The patient has anemia. Scheduled for colonoscopy, being prepared tonight for tomorrow. We will monitor his condition. Discussed with Dr. Hanson, gastroenterology consult. 2. Pneumonia, right lower lobe pneumonia. Pulmonary consult with Dr. Vaughan. Continue intravenous Zosyn, doxycycline and bronchodilators. 3. Chronic back pain. Continue oxycodone. 4. Chronic anxiety. Continue Zoloft and Klonopin. Continue current management. We will monitor the patient carefully. Ishaan Little MD
[2018-08-12] MEDS: Enoxaparin 30 mg Syringe SC SCH (10:01)
[2018-08-12] MEDS: oxyCODONE 80 mg ER Tab (oxyCONTIN) PO SCH ×2 (10:02→21:26)
[2018-08-12] MEDS: Pantoprazole 40 mg EC Tab PO SCH (10:02)
--- NOTE | 2018-08-12 10:05 | CT ---
Date of service: 08/12/2018 PROCEDURE: CT Abdomen and Pelvis with contrast HISTORY: pain COMPARISON: None. TECHNIQUE: Contrast dose: 100 cc of Omni 350 Radiation dose: Total exam DLP = 306.33 mGy-cm. This CT exam was performed using one or more of the following dose reduction techniques: Automated exposure control, adjustment of the mA and/or kV according to patient size, and/or use of iterative reconstruction technique. FINDINGS: LOWER THORAX: There is dense alveolar consolidation with air bronchograms in both lower lobes right greater than left consistent with pneumonia. LIVER: Unremarkable. No gross lesion or ductal dilatation. GALLBLADDER AND BILE DUCTS: Unremarkable. PANCREAS: Unremarkable. No gross lesion or ductal dilatation. SPLEEN: Unremarkable. ADRENALS: Unremarkable. No mass. KIDNEYS AND URETERS: Unremarkable. No hydronephrosis. No solid mass. VASCULATURE: Unremarkable. No aortic aneurysm. No aortic atherosclerotic calcification or mural plaque present. BOWEL: Unremarkable. No obstruction. No gross mural thickening. APPENDIX: Normal appendix. PERITONEUM: Unremarkable. No free fluid. No free air. LYMPH NODES: Unremarkable. No enlarged lymph nodes. BLADDER: Unremarkable. REPRODUCTIVE: Unremarkable. BONES: Fusion in the lower lumbar spine OTHER FINDINGS: None. IMPRESSION: There is dense alveolar consolidation with air bronchograms in both lower lobes right greater than left consistent with pneumonia.
--- NOTE | 2018-08-12 10:22 | CP.PCM.PN ---
<Alirio Feng - Last Filed: 08/12/18 12:27> Subjective - Date & Time of Evaluation Date of Evaluation: 08/12/18 Time of Evaluation: 10:10 - Subjective Subjective: ID Progress Note Patient seen and examined. Patient with no complaints. Describes minimal cough. No fevers. Objective - Vital Signs/Intake and Output Vital Signs (last 24 hours): Temp Pulse Resp BP Pulse Ox 97.5 F L 63 20 103/61 97 08/12/18 06:00 08/12/18 06:00 08/12/18 06:00 08/12/18 06:00 08/12/18 06:00 Intake and Output: 08/12/18 08/12/18 06:59 18:59 Intake Total 920 Balance 920 - Medications Medications: Current Medications Acetaminophen (Tylenol 325mg Tab) 650 mg PO Q4H PRN PRN Reason: Pain, Mild (1-3) Acetylcysteine (Acetylcysteine 20%) 4 ml IH BIDRESP ANASTACIO Last Admin: 08/12/18 07:37 Dose: 4 ml Albuterol/Ipratropium (Duoneb 3 Mg/0.5 Mg (3 Ml) Ud) 3 ml IH Q4H PRN PRN Reason: Shortness of Breath Last Admin: 08/10/18 13:55 Dose: 3 ml Arformoterol Tartrate (Brovana) 15 mcg IH [id number] ANASTACIO Last Admin: 08/12/18 07:37 Dose: 15 mcg Budesonide (Pulmicort Respules) 0.5 mg IH [id number] ANASTACIO Last Admin: 08/12/18 07:37 Dose: 0.5 mg Clonazepam (Klonopin) 1 mg PO BID [facility]; Protocol Last Admin: 08/12/18 10:02 Dose: 1 mg Cyclobenzaprine HCl (Flexeril) 10 mg PO TID [facility] Last Admin: 08/12/18 10:02 Dose: 10 mg Doxycycline Hyclate (Doryx) 100 mg PO Q12 [facility]; Protocol Last Admin: 08/12/18 10:02 Dose: 100 mg Enoxaparin Sodium (Lovenox) 30 mg SC DAILY [facility]; Protocol Last Admin: 08/12/18 10:01 Dose: 30 mg Ampicillin Sodium/Sulbactam (Sodium 3 gm/ Sodium Chloride) 100 mls @ 200 mls/hr IVPB Q6 [facility]; Protocol Last Admin: 08/12/18 05:57 Dose: 200 mls/hr Oxycodone HCl (Oxycodone Immediate Release Tab) 15 mg PO Q6H PRN PRN Reason: Pain, severe (8-10) Last Admin: 08/11/18 07:17 Dose: 15 mg Oxycodone HCl (Oxycontin Extended Release Tab) 80 mg PO Q12 [facility] Last Admin: 08/12/18 10:02 Dose: 80 mg Pantoprazole Sodium (Protonix Ec Tab) 40 mg PO DAILY [facility] Last Admin: 08/12/18 10:02 Dose: 40 mg Sertraline HCl (Zoloft) 100 mg PO QAM [facility] Last Admin: 08/12/18 10:02 Dose: 100 mg - Labs Labs: 08/12/18 07:10 08/12/18 07:10 PT 15.2 SECONDS (9.4-12.5) H 08/11/18 13:10 INR 1.37 08/11/18 13:10 - Constitutional Appears: Non-toxic, No Acute Distress - Head Exam Head Exam: ATRAUMATIC, NORMAL INSPECTION, NORMOCEPHALIC - Respiratory Exam Respiratory Exam: Decreased Breath Sounds, NORMAL BREATHING PATTERN - Cardiovascular Exam Cardiovascular Exam: RRR, +S1, +S2 - GI/Abdominal Exam GI & Abdominal Exam: Soft, Normal Bowel Sounds. absent: Tenderness - Extremities Exam Extremities Exam: Normal Inspection. absent: Pedal Edema - Neurological Exam Neurological Exam: Alert, Awake, Oriented x3 - Psychiatric Exam Psychiatric exam: Normal Affect, Normal Mood - Skin Skin Exam: Intact, Normal Color, Warm Assessment and Plan - Assessment and Plan (Free Text) Plan: Acute Bronchitis Hx of Esophageal strictures Hx of aspiration pneumonia Hx of chronic back pain Plan Continue on Doxycycline and Unasyn Chest CT demonstrates chronic right lower lobe infiltrates Abdomen/Pelvis CT demonstrates alveolar consolidation with b/l lower lobe pneumonia with right greater than the left Patient will need outpatient follow up for monitoring of chronic infiltrates, possible bronch Procal elevated Flu negative Blood cultures negative Continue to monitor closely Jung, PGY-3 <Brian Sevilla - Last Filed: 08/12/18 18:26> Objective - Vital Signs/Intake and Output Vital Signs (last 24 hours): Temp Pulse Resp BP Pulse Ox 98 F 106 H 20 120/70 94 L 08/12/18 14:00 08/12/18 14:00 08/12/18 14:00 08/12/18 14:00 08/12/18 14:00 Intake and Output: 08/12/18 08/12/18 06:59 18:59 Intake Total 920 1400 Balance 920 1400 - Medications Medications: Current Medications Acetaminophen (Tylenol 325mg Tab) 650 mg PO Q4H PRN PRN Reason: Pain, Mild (1-3) Acetylcysteine (Acetylcysteine 20%) 4 ml IH BIDRESP ANASTACIO Last Admin: 08/12/18 07:37 Dose: 4 ml Albuterol/Ipratropium (Duoneb 3 Mg/0.5 Mg (3 Ml) Ud) 3 ml IH Q4H PRN PRN Reason: Shortness of Breath Last Admin: 08/10/18 13:55 Dose: 3 ml Arformoterol Tartrate (Brovana) 15 mcg IH [id number] ANASTACIO Last Admin: 08/12/18 07:37 Dose: 15 mcg Budesonide (Pulmicort Respules) 0.5 mg IH [id number] ANASTACIO Last Admin: 08/12/18 07:37 Dose: 0.5 mg Clonazepam (Klonopin) 1 mg PO BID [facility]; Protocol Last Admin: 08/12/18 17:47 Dose: 1 mg Cyclobenzaprine HCl (Flexeril) 10 mg PO TID [facility] Last Admin: 08/12/18 17:47 Dose: 10 mg Doxycycline Hyclate (Doryx) 100 mg PO Q12 [facility]; Protocol Last Admin: 08/12/18 10:02 Dose: 100 mg Enoxaparin Sodium (Lovenox) 30 mg SC DAILY [facility]; Protocol Last Admin: 08/12/18 10:01 Dose: 30 mg Oxycodone HCl (Oxycodone Immediate Release Tab) 15 mg PO Q6H PRN PRN Reason: Pain, severe (8-10) Last Admin: 08/12/18 12:37 Dose: 15 mg Oxycodone HCl (Oxycontin Extended Release Tab) 80 mg PO Q12 [facility] Last Admin: 08/12/18 10:02 Dose: 80 mg Pantoprazole Sodium (Protonix Ec Tab) 40 mg PO DAILY [facility] Last Admin: 08/12/18 10:02 Dose: 40 mg Sertraline HCl (Zoloft) 100 mg PO QAM [facility] Last Admin: 08/12/18 10:02 Dose: 100 mg - Labs Labs: 08/12/18 07:10 08/12/18 07:10 PT 15.2 SECONDS (9.4-12.5) H 08/11/18 13:10 INR 1.37 08/11/18 13:10 Assessment and Plan - Assessment and Plan (Free Text) Plan: Infectious diseases Attending Physician Attestation Patient seen and examined, discussed with medical office representative. I have reviewed the patient's history of present illness, past medical, social, personal and family histories, pertinent physical exam findings, course so far in this hospital admission, pertinent laboratory and imaging results. I agree with the above findings, assessment and plan. In addition, continue Unasyn and Doxycycline for acute bronchitis with probable chronic pneumonia. May eventually need bronchoscopy.
[2018-08-12] MEDS: oxyCODONE 5 mg Immediate Release Tab PO PRN (12:37)
[2018-08-12 13:05] LABS: IRON 28 ug/dL (45-180)
--- NOTE | 2018-08-12 13:12 | PN ---
DATE: 08/12/2018 REFERRING PHYSICIAN: Ishaan Little MD SUBJECTIVE: The patient is sitting on the bedside. No acute distress. No overnight events reported. The patient reports feeling well today, still has occasional cough. No headache, rhinitis, chest pain, shortness of breath, abdominal pain, nausea, vomiting, diarrhea, leg pain, or leg swelling reported. OBJECTIVE: VITAL SIGNS: Blood pressure 103/51, pulse 63, temperature 97.5, oxygen saturation 97%. GENERAL: No acute distress. HEENT: Moist mucous membranes. Crowded airway. Mallampati score 4. NECK: Supple. No JVD. LUNGS: Crackles at the bases. Few scattered rhonchi. CARDIOVASCULAR: S1, S2 audible. ABDOMEN: Soft, nontender. No distention. No organomegaly. EXTREMITIES: No bilateral lower extremity edema. NEUROLOGIC: Awake, alert, verbal, and follows commands. MEDICATIONS: Reviewed. Tylenol 650 every 4 hours p.r.n. mild pain, Mucomyst 4 mL inhalation twice a day, Duoneb 3 mL inhalation every 4 hours p.r.n., Unasyn 3 g every 6 hours, Brovana 15 mcg every 12 hours, Pulmicort 2.5 mg inhalation every 12 hours, Klonopin 1 mg twice a day, Flexeril 10 mg three times a day, doxycycline 100 mg every 12 hours, Lovenox 30 mg subcutaneous daily, oxycodone 15 mg every 6 hours p.r.n., OxyContin 80 mg every 12 hours, Protonix 40 mg daily, and Zoloft 100 mg daily. LABORATORY DATA: Reviewed. WBC 10.3, RBC 3.69, hemoglobin 9.6, hematocrit 30.9, platelets 280. Sodium 141, potassium 3.5, chloride 103, carbon dioxide 32, anion gap 9, BUN 3, creatinine 0.5, GFR greater than 60, random glucose 95, calcium 8.1. Total bilirubin 0.6, AST 35, ALT 15, alkaline phosphatase 73, total protein 7. Albumin 3.4, globulin 3.6, albumin-globulin ratio 1. Blood cultures preliminary, no growth after [address] shows dense alveolar consolidation with air bronchograms in both lower lobes, right greater than left, consistent with pneumonia. IMPRESSION AND PLAN: Recurrent aspiration pneumonia, history of esophageal stricture, chronic back pain. Continue Gastrointestinal followup. Continue inhaled bronchodilators, gastric prophylaxis, deep venous thrombosis prophylaxis. Continue antibiotic therapy, aspiration precautions. Head of bed elevated 45 degrees. Fall precautions. This patient seen and examined with Dr. Vaughan. Discussed assessment and plan as described above. This patient seen and examined with Wayne Campoverde, nurse practitioner. Discussed assessment and plan as described above. Thank you for this consult. We will follow with you. Wayne Campoverde APN Arnav Vaughan MD
[2018-08-12 13:15] LABS: % IRON SATURATION 8 % (20-55); TOTAL IRON BINDING CAPACITY 346 ug/dL (261-462)
--- NOTE | 2018-08-12 13:56 | CP.PCM.CON ---
<Nicolas Jansen - Last Filed: 08/12/18 13:53> History of Present Illness - History of Present Illness History of Present Illness: PGY-2 heme/onc consult note for Dr Simmons Mr Phelan is a 57 year old male with a PMHx of esophageal stricture, recurrent aspiration pneumonia, and chronic back pain, who presented to the Emergency department complaining of shortness of breath. Patient states he has been experiencing shortness of breath and cough over the past week, worsening tonight. Patient states symptoms have been consistent with previous episodes of pneumonia and notes he was recently placed on antibiotics by his PMD with no significant relief. Hematology/oncology have been consulted for his chronic anemia. He has had anemia since 2014. He denies any GI source of bleeding. He denies a family hx of blood disorder. He denies chronic fatigue and dyspnea on exertion at his baseline (when not related to his pulmonary issues). PMHx: esophageal stricture, recurrent aspiration pneumonia, and chronic back pain Family History: denies colon cancer, stomach cancer Social History: former tobacco and alcohol use, quit over 40 years ago, denies illicit drug use Surgical History: back surgery, appendectomy, left ankle surgery, hernia repair Allergies: NKA Review of Systems - Review of Systems All systems: reviewed and no additional remarkable complaints except (as stated in HPI) Past Patient History - Infectious Disease Hx of Infectious Diseases: None - Tetanus Immunizations Tetanus Immunization: Unknown - Past Social History Smoking Status: Former Smoker - CARDIAC Hx Cardiac Disorders: No Hx Pacemaker: No - PULMONARY Hx Respiratory Disorders: Yes Hx Bronchitis: Yes Hx Pneumonia: Yes (aspirations pneumonia,2-5-19) Other/Comment: stricture of esophagus-MULTIPLE ENDOSCOPIES - NEUROLOGICAL Hx Neurological Disorder: Yes Hx Migraine: Yes - HEENT Hx HEENT Problems: Yes (wears eyeglasses) - RENAL Hx Chronic Kidney Disease: No - ENDOCRINE/METABOLIC Hx Endocrine Disorders: No - HEMATOLOGICAL/ONCOLOGICAL Hx Blood Transfusions: No Hx Blood Transfusion Reaction: No - INTEGUMENTARY Hx Dermatological Problems: No - MUSCULOSKELETAL/RHEUMATOLOGICAL Hx Musculoskeletal Disorders: Yes (L FOOT SURGERY) Hx Falls: Yes - GASTROINTESTINAL Hx Gastrointestinal Disorders: Yes (L INGUINAL HERNIA REPAIR) Other/Comment: esophageal stricture. throat dialation several egd's - GENITOURINARY/GYNECOLOGICAL Hx Genitourinary Disorders: No - PSYCHIATRIC Hx Psychophysiologic Disorder: Yes Hx Anxiety: Yes Hx Depression: Yes Hx Emotional Abuse: No Hx Substance Use: Yes - SURGICAL HISTORY Hx Surgeries: Yes - ANESTHESIA Hx Anesthesia Reactions: No Hx Malignant Hyperthermia: No Meds Allergies/Adverse Reactions: Allergies Allergy/AdvReac Type Severity Reaction Status Date / Time No Known Allergies Allergy Verified 08/09/18 12:34 - Medications Medications: Current Medications Acetaminophen (Tylenol 325mg Tab) 650 mg PO Q4H PRN PRN Reason: Pain, Mild (1-3) Acetylcysteine (Acetylcysteine 20%) 4 ml IH BIDRESP [facility] Last Admin: 08/12/18 07:37 Dose: 4 ml Albuterol/Ipratropium (Duoneb 3 Mg/0.5 Mg (3 Ml) Ud) 3 ml IH Q4H PRN PRN Reason: Shortness of Breath Last Admin: 08/10/18 13:55 Dose: 3 ml Arformoterol Tartrate (Brovana) 15 mcg IH [id number] [facility] Last Admin: 08/12/18 07:37 Dose: 15 mcg Budesonide (Pulmicort Respules) 0.5 mg IH [id number] [facility] Last Admin: 08/12/18 07:37 Dose: 0.5 mg Clonazepam (Klonopin) 1 mg PO BID [facility]; Protocol Last Admin: 08/12/18 10:02 Dose: 1 mg Cyclobenzaprine HCl (Flexeril) 10 mg PO TID [facility] Last Admin: 08/12/18 13:28 Dose: 10 mg Doxycycline Hyclate (Doryx) 100 mg PO Q12 [facility]; Protocol Last Admin: 08/12/18 10:02 Dose: 100 mg Enoxaparin Sodium (Lovenox) 30 mg SC DAILY [facility]; Protocol Last Admin: 08/12/18 10:01 Dose: 30 mg Ampicillin Sodium/Sulbactam (Sodium 3 gm/ Sodium Chloride) 100 mls @ 200 mls/hr IVPB Q6 [facility]; Protocol Last Admin: 08/12/18 12:29 Dose: 200 mls/hr Oxycodone HCl (Oxycodone Immediate Release Tab) 15 mg PO Q6H PRN PRN Reason: Pain, severe (8-10) Last Admin: 08/12/18 12:37 Dose: 15 mg Oxycodone HCl (Oxycontin Extended Release Tab) 80 mg PO Q12 [facility] Last Admin: 08/12/18 10:02 Dose: 80 mg Pantoprazole Sodium (Protonix Ec Tab) 40 mg PO DAILY [facility] Last Admin: 08/12/18 10:02 Dose: 40 mg Sertraline HCl (Zoloft) 100 mg PO QAM [facility] Last Admin: 08/12/18 10:02 Dose: 100 mg Physical Exam - Additional Findings Additional findings: - Constitutional Appears: Non-toxic, No Acute Distress - Head Exam Head Exam: ATRAUMATIC, NORMOCEPHALIC - Eye Exam Eye Exam: EOMI, PERRL Pupil Exam: PERRL. absent: Miosis, Mydriatic - ENT Exam ENT Exam: Mucous Membranes Moist, Normal Oropharynx - Neck Exam Neck exam: Positive for: Full Rom, Normal Inspection - Respiratory Exam Respiratory Exam: Clear to Auscultation Bilateral. absent: Rales, Rhonchi, Wheezes - Cardiovascular Exam Cardiovascular Exam: RRR, +S1, +S2. absent: Gallop, Rubs - GI/Abdominal Exam GI & Abdominal Exam: Normal Bowel Sounds, Soft. absent: Distended, Firm, Guarding, Organomegaly, Rebound, Rigid, Tenderness - Extremities Exam Extremities exam: Positive for: normal inspection. Negative for: pedal edema - Neurological Exam Neurological exam: Alert - Psychiatric Exam Psychiatric exam: Agitated, Normal Affect - Skin Skin Exam: Dry, Intact, Normal Color, Warm Results - Vital Signs Recent Vital Signs: Last Vital Signs Temp 97.5 F L 08/12/18 06:00 Pulse 63 08/12/18 06:00 Resp 20 08/12/18 06:00 BP 103/61 08/12/18 06:00 Pulse Ox 97 08/12/18 06:00 - Labs Result Diagrams: 08/12/18 07:10 08/12/18 07:10 Labs: Laboratory Results - last 24 hr 08/12/18 08/12/18 08/12/18 07:10 07:10 12:45 WBC 10.2 D RBC 3.69 Hgb 9.6 L Hct 30.9 L MCV 83.7 MCH 26.0 MCHC 31.1 RDW 15.0 H Plt Count 280 MPV 8.9 Sodium 141 Potassium 3.5 L Chloride 103 Carbon Dioxide 32 Anion Gap 9 L BUN 3 L Creatinine 0.5 L Est GFR ( Amer) > 60 Est GFR (Non-Af Amer) > 60 Random Glucose 95 Calcium 8.1 L Iron 28 L TIBC 346 % Saturation 8 L Total Bilirubin 0.6 AST 35 ALT 15 Alkaline Phosphatase 73 Total Protein 7.0 Albumin 3.4 Globulin 3.6 Albumin/Globulin Ratio 1.0 L Assessment & Plan - Assessment and Plan (Free Text) Plan: Mr Phelan is a 57 year old male with a PMHx of esophageal stricture, recurrent aspiration pneumonia, and chronic back pain, who presented to the Emergency department complaining of shortness of breath. Hematology/oncology have been consulted for his chronic anemia. Iron Deficiency Anemia -hgb around 10 since 2013 -likely iron deficiency anemia given his low iron, low % saturation, normal ferritin; also b12, folate and MCV are normal; tbili is normal -CT abd/pelvis w/ contrast essentially unremarkable except for pneumonia for which he is receiving abx -patient had a colonoscopy on 08/11/18 which showed redundant colon and hemorrhoids -we recommend an outpatient EGD to evaluate upper GI source of bleeding - if this is negative for bleeding then we recommend a push enteroscopy or capsule endoscopy to evaluate the small bowel for a source of bleeding -it is imperative patient follow up with Dr Simmons in his office as well as GI Dr Hanson Seen and discussed with Dr Simmons <Jean Marie Simmons P - Last Filed: 08/17/18 16:12> Results - Vital Signs Recent Vital Signs: Last Vital Signs Temp 97.8 F 08/13/18 06:00 Pulse 78 08/13/18 06:00 Resp 18 08/13/18 06:00 BP 99/60 L 08/13/18 06:00 Pulse Ox 97 08/13/18 06:00 - Labs Result Diagrams: 08/12/18 07:10 08/12/18 07:10 Attending/Attestation - Attestation I have personally seen and examined this patient.: Yes I have fully participated in the care of the patient.: Yes I have reviewed all pertinent clinical information: Yes
[2018-08-12] MEDS ORDERED: Potassium Chloride 20 mEq ER Tab PO ONE (15:00)
[2018-08-13] MEDS: oxyCODONE 5 mg Immediate Release Tab PO PRN ×2 (00:18→08:43)
[2018-08-13] MEDS: Arformoterol 15 mcg/2 ml Inh Sol IH SCH (07:30)
[2018-08-13] MEDS: Acetylcysteine 20% Inhal Soln (4ml) IH SCH (07:30)
[2018-08-13] MEDS: Budesonide 0.5 mg/2 ml Inhal Susp UD IH SCH (07:31)
[2018-08-13 08:37] VITALS: BP 99/60; PULSE 78; RESP 18; TEMP 97.8; O2SAT 97
[2018-08-13] MEDS: Enoxaparin 30 mg Syringe SC SCH (10:43)
[2018-08-13] MEDS: Pantoprazole 40 mg EC Tab PO SCH (10:44)
[2018-08-13] MEDS: oxyCODONE 80 mg ER Tab (oxyCONTIN) PO SCH (10:44)
--- NOTE | 2018-08-13 12:15 | CP.PCM.PN ---
<Liz Costa - Last Filed: 08/13/18 12:07> Subjective - Date & Time of Evaluation Date of Evaluation: 08/13/18 Time of Evaluation: 12:07 - Subjective Subjective: Gastroenterology Fellow/PGY6 Progress Note Patient denies abdominal pain. Improved productive cough. Tolerating regular diet. Notes bowel movement yesterday. A 12-point review of systems negative except for as above. Objective - Vital Signs/Intake and Output Vital Signs (last 24 hours): Temp Pulse Resp BP Pulse Ox 97.8 F 78 18 99/60 L 97 08/13/18 06:00 08/13/18 06:00 08/13/18 06:00 08/13/18 06:00 08/13/18 06:00 Intake and Output: 08/13/18 08/13/18 06:59 18:59 Intake Total 960 Balance 960 - Medications Medications: Current Medications Acetaminophen (Tylenol 325mg Tab) 650 mg PO Q4H PRN PRN Reason: Pain, Mild (1-3) Acetylcysteine (Acetylcysteine 20%) 4 ml IH BIDRESP [facility] Last Admin: 08/13/18 07:30 Dose: 4 ml Albuterol/Ipratropium (Duoneb 3 Mg/0.5 Mg (3 Ml) Ud) 3 ml IH Q4H PRN PRN Reason: Shortness of Breath Last Admin: 08/10/18 13:55 Dose: 3 ml Arformoterol Tartrate (Brovana) 15 mcg IH [id number] [facility] Last Admin: 08/13/18 07:30 Dose: 15 mcg Budesonide (Pulmicort Respules) 0.5 mg IH [id number] [facility] Last Admin: 08/13/18 07:31 Dose: 0.5 mg Clonazepam (Klonopin) 1 mg PO BID [facility]; Protocol Last Admin: 08/13/18 10:44 Dose: 1 mg Cyclobenzaprine HCl (Flexeril) 10 mg PO TID [facility] Last Admin: 08/13/18 10:44 Dose: 10 mg Doxycycline Hyclate (Doryx) 100 mg PO Q12 [facility]; Protocol Last Admin: 08/13/18 10:44 Dose: 100 mg Enoxaparin Sodium (Lovenox) 30 mg SC DAILY [facility]; Protocol Last Admin: 08/13/18 10:43 Dose: 30 mg Oxycodone HCl (Oxycontin Extended Release Tab) 80 mg PO Q12 [facility] Last Admin: 08/13/18 10:44 Dose: 80 mg Pantoprazole Sodium (Protonix Ec Tab) 40 mg PO DAILY [facility] Last Admin: 08/13/18 10:44 Dose: 40 mg Sertraline HCl (Zoloft) 100 mg PO QAM [facility] Last Admin: 08/13/18 10:43 Dose: 100 mg - Labs Labs: 08/12/18 07:10 08/12/18 07:10 PT 15.2 SECONDS (9.4-12.5) H 08/11/18 13:10 INR 1.37 08/11/18 13:10 - Constitutional Appears: Non-toxic, No Acute Distress - Head Exam Head Exam: ATRAUMATIC, NORMOCEPHALIC - Eye Exam Eye Exam: EOMI, PERRL. absent: Scleral icterus Pupil Exam: PERRL. absent: Miosis, Mydriatic - ENT Exam ENT Exam: Mucous Membranes Moist, Normal Oropharynx - Neck Exam Neck Exam: Full ROM, Normal Inspection - Respiratory Exam Respiratory Exam: Clear to Ausculation Bilateral. absent: Rales, Rhonchi, Wheezes - Cardiovascular Exam Cardiovascular Exam: RRR, +S1, +S2. absent: Gallop, Rubs - GI/Abdominal Exam GI & Abdominal Exam: Soft, Normal Bowel Sounds. absent: Distended, Firm, Guarding, Rigid, Tenderness, Organomegaly, Rebound - Extremities Exam Extremities Exam: Normal Inspection. absent: Pedal Edema - Neurological Exam Neurological Exam: Alert, Awake - Psychiatric Exam Psychiatric exam: Normal Affect, Normal Mood - Skin Skin Exam: Dry, Normal Color, Warm. absent: Intact Assessment and Plan - Assessment and Plan (Free Text) Assessment: 57 year old male with PMH of esophageal stricture s/p multiple dilations (most recent 12/2017) complicated by recurrent aspiration pneumonia and chronic back pain presenting with shortness of breath. Active treatment of acute bronchitis. GI consultation for anemia and history of esophageal stricture. Multiple prior EGD for stricture dilations from 04/2016 to EGD 12/2017 showing esophageal stricture at 18cm from incisors s/p sequential Savory dilation from 24 Tristanian to 36 Tristanian without complication. No prior colonoscopy. Plan: -POD1 (08/12/18) Colonoscopy- no acute pathology -plan for outpatient EG -H/H stable at baseline -iron deficiency noted on iron panel -tolerating regular diet -pulmonology and ID managing Bronchitis -plan for outpatient GI follow up for EGD for further anemia workup after respiratory status optimization in setting of acute bronchitis and known history of aspiration risk given esophageal stricture with surveillance to be completed on outpatient EGD <Candido Hanson V - Last Filed: 08/14/18 00:46> Objective - Vital Signs/Intake and Output Vital Signs (last 24 hours): Temp Pulse Resp BP Pulse Ox 97.8 F 78 18 99/60 L 97 08/13/18 06:00 08/13/18 06:00 08/13/18 06:00 08/13/18 06:00 08/13/18 06:00 - Labs Labs: 08/12/18 07:10 08/12/18 07:10 PT 15.2 SECONDS (9.4-12.5) H 08/11/18 13:10 INR 1.37 08/11/18 13:10 Attending/Attestation - Attestation I have personally seen and examined this patient.: Yes I have fully participated in the care of the patient.: Yes I have reviewed all pertinent clinical information, including history, physical exam and plan: Yes Notes (Text): p 08/14/18 00:46
--- NOTE | 2018-08-13 13:02 | PN ---
DATE: 08/13/2018 PULMONARY PROGRESS NOTE REFERRING PHYSICIAN: Ishaan Little MD SUBJECTIVE: The patient is sitting up in bed in no acute distress. No overnight events reported. The patient reports feeling well today. Still has occasional cough. No shortness of breath. No headache, rhinitis, chest pain, abdominal pain, nausea, vomiting, diarrhea, leg pain, or leg swelling reported. PHYSICAL EXAMINATION: GENERAL: No acute distress. VITAL SIGNS: Blood pressure 99/60, pulse 78, temperature 97.8, oxygen saturation 97 on room air. HEENT: Moist mucous membranes. Crowded airways. Mallampati score of 4. NECK: Supple. No JVD. LUNGS: Scattered rhonchi bilaterally. CARDIOVASCULAR: S1 and S2. ABDOMEN: Soft, nontender. No distention. No organomegaly. EXTREMITIES: No bilateral lower extremity edema. NEUROLOGICAL: Awake, alert and verbal. Follows commands. MEDICATIONS: Reviewed. Tylenol 650 every 4 hours p.r.n. mild pain, Mucomyst 4 mL inhalation twice a day, Duoneb 3 mL inhalation every 4 hours p.r.n., Unasyn 3 g every 6 hours, Brovana 15 mcg every 12 hours, Pulmicort mg every 12 hours, Klonopin 1 mg twice a day, Flexeril 10 mg three times a day, doxycycline 100 mg every 12 hours, Lovenox 30 mg subcu daily, OxyContin extended release 80 mg every 12 hours, Protonix 40 mg daily, and Zoloft 100 mg in the morning. LABORATORY DATA: Reviewed. Procalcitonin 0.56, iron 28, TIBC 346, percent saturation 8. Blood cultures, preliminary no growth after four days. IMPRESSION AND PLAN: Recurrent aspiration pneumonia, history of esophageal stricture, chronic back pain. Continue Gastrointestinal followup for recurrent aspiration pneumonia. Continue inhaled bronchodilators, deep venous thrombosis prophylaxis, gastric prophylaxis. Will discontinue Unasyn. Continue doxycycline for 5 more days. Aspiration precautions. Head of bed elevated 45 degrees. Fall precautions. This patient seen and examined with Dr. Vaughan. Discussed assessment and plan as described above. This patient seen and examined with Wayne Campoverde, nurse practitioner. Discussed assessment and plan as described above. Thank you for this consult. We will follow with you. Wayne Campoverde APN Arnav Vaughan MD [facility] # [id number]
--- NOTE | 2018-08-13 13:09 | PN ---
DATE: 08/12/2018 SUBJECTIVE: The patient is 57-year-old male. The patient is stable. He is standing up in the room, walking around. Has no chest pain, has no short of breath. His cough is better. He is on IV fluid and IV antibiotics; otherwise seems doing well. PHYSICAL EXAMINATION: VITAL SIGNS: His temperature is 98, heart rate 106, blood pressure 120/70, saturating 97% on room air and respirations 20. HEAD AND NECK: Normal. No JVD. No thyromegaly. CHEST: Clear. Few basal rhonchi and crepitations. CARDIAC: Normal. No murmur, rub or gallop. ABDOMEN: Soft, obese and nontender. EXTREMITIES: No edema. NEUROLOGIC: Normal. LABORATORY DATA: White count 10.2, hemoglobin 9.6, hematocrit 30.9, and platelets 280. His chemistry; sodium 141, potassium 3.5, chloride 103, bicarb 32, BUN 3, creatinine 0.5, calcium 8.1. His iron saturation is low and iron level is . The patient also had CT abdomen and pelvis which was negative for any lesions except for lung chronic scarring, possible consolidations. in both lower lobes, right greater than left, consistent with pneumonia. The patient also had a colonoscopy which was negative for any lesions that could not explain anemia. IMPRESSION AND PLAN: 1. Community-acquired pneumonia, aspiration pneumonia. Continue IV antibiotics. He is in Unasyn IV. Continue inhaled bronchodilators. Continue Brovana and Pulmicort, seems doing well and DuoNeb. 2. Anemia. Etiology unclear. CT abdomen seems negative and the patient had colonoscopy which was negative. The plan is to get a Oncology/Hematology consult to evaluate the etiology of anemia. 3. Chronic spine pain. He has history of the spine fusions. 4. Chronic depression with anxiety. Continue Zoloft 100 mg q.i.d. Continue Klonopin, has been decreased to twice a day and OxyContin has been decreased to twice a day also. We will continue current therapy. We will follow up clinically. Ishaan Little MD [facility] # [id number]
--- NOTE | 2018-08-13 14:34 | CP.PCM.PN ---
<Alirio Feng - Last Filed: 08/13/18 14:32> Subjective - Date & Time of Evaluation Date of Evaluation: 08/13/18 Time of Evaluation: 11:30 - Subjective Subjective: ID Progress Note Patient seen and examined. Patient states he feels well. Denies cough or congestion. No fever. Objective - Vital Signs/Intake and Output Vital Signs (last 24 hours): Temp Pulse Resp BP Pulse Ox 97.8 F 78 18 99/60 L 97 08/13/18 06:00 08/13/18 06:00 08/13/18 06:00 08/13/18 06:00 08/13/18 06:00 Intake and Output: 08/13/18 08/13/18 06:59 18:59 Intake Total 960 Balance 960 - Medications Medications: Current Medications Acetaminophen (Tylenol 325mg Tab) 650 mg PO Q4H PRN PRN Reason: Pain, Mild (1-3) Acetylcysteine (Acetylcysteine 20%) 4 ml IH BIDRESP [facility] Last Admin: 08/13/18 07:30 Dose: 4 ml Albuterol/Ipratropium (Duoneb 3 Mg/0.5 Mg (3 Ml) Ud) 3 ml IH Q4H PRN PRN Reason: Shortness of Breath Last Admin: 08/10/18 13:55 Dose: 3 ml Arformoterol Tartrate (Brovana) 15 mcg IH [id number] [facility] Last Admin: 08/13/18 07:30 Dose: 15 mcg Budesonide (Pulmicort Respules) 0.5 mg IH [id number] [facility] Last Admin: 08/13/18 07:31 Dose: 0.5 mg Clonazepam (Klonopin) 1 mg PO BID [facility]; Protocol Last Admin: 08/13/18 10:44 Dose: 1 mg Cyclobenzaprine HCl (Flexeril) 10 mg PO TID [facility] Last Admin: 08/13/18 10:44 Dose: 10 mg Doxycycline Hyclate (Doryx) 100 mg PO Q12 [facility]; Protocol Last Admin: 08/13/18 10:44 Dose: 100 mg Enoxaparin Sodium (Lovenox) 30 mg SC DAILY [facility]; Protocol Last Admin: 08/13/18 10:43 Dose: 30 mg Ferrous Sulfate (Feosol) 324 mg PO DAILY [facility] Oxycodone HCl (Oxycontin Extended Release Tab) 80 mg PO Q12 [facility] Last Admin: 08/13/18 10:44 Dose: 80 mg Pantoprazole Sodium (Protonix Ec Tab) 40 mg PO DAILY [facility] Last Admin: 08/13/18 10:44 Dose: 40 mg Sertraline HCl (Zoloft) 100 mg PO QAM [facility] Last Admin: 08/13/18 10:43 Dose: 100 mg - Labs Labs: 08/12/18 07:10 08/12/18 07:10 PT 15.2 SECONDS (9.4-12.5) H 08/11/18 13:10 INR 1.37 08/11/18 13:10 - Constitutional Appears: Non-toxic, No Acute Distress - Head Exam Head Exam: ATRAUMATIC, NORMAL INSPECTION, NORMOCEPHALIC - ENT Exam ENT Exam: Mucous Membranes Moist - Respiratory Exam Respiratory Exam: Decreased Breath Sounds, NORMAL BREATHING PATTERN - Cardiovascular Exam Cardiovascular Exam: RRR, +S1, +S2 - GI/Abdominal Exam GI & Abdominal Exam: Soft, Normal Bowel Sounds. absent: Tenderness - Extremities Exam Extremities Exam: Normal Inspection. absent: Pedal Edema - Neurological Exam Neurological Exam: Alert, Awake, Oriented x3 - Psychiatric Exam Psychiatric exam: Normal Affect, Normal Mood - Skin Skin Exam: Intact, Normal Color, Warm Assessment and Plan - Assessment and Plan (Free Text) Plan: Acute Bronchitis, possible chronic pneumonia Hx of Esophageal strictures Hx of aspiration pneumonia Hx of chronic back pain Plan Continue on Doxycycline and Unasyn for tota of 7 days Can switch Unasyn to Augmentin Chest CT demonstrates chronic right lower lobe infiltrates Abdomen/Pelvis CT demonstrates alveolar consolidation with b/l lower lobe pneumonia with right greater than the left Patient will need outpatient follow up for monitoring of chronic infiltrates, possible bronch Procal elevated Flu negative Blood cultures negative Continue to monitor closely Jung, PGY-3 <Brian Sevilla - Last Filed: 08/13/18 19:45> Objective - Vital Signs/Intake and Output Vital Signs (last 24 hours): Temp Pulse Resp BP Pulse Ox 97.8 F 78 18 99/60 L 97 08/13/18 06:00 08/13/18 06:00 08/13/18 06:00 08/13/18 06:00 08/13/18 06:00 - Labs Labs: 08/12/18 07:10 08/12/18 07:10 PT 15.2 SECONDS (9.4-12.5) H 08/11/18 13:10 INR 1.37 08/11/18 13:10 Assessment and Plan - Assessment and Plan (Free Text) Plan: Infectious diseases Attending Physician Attestation Patient seen and examined, discussed with medical support assistant. I have reviewed the patient's history of present illness, past medical, social, personal and family histories, pertinent physical exam findings, course so far in this hospital admission, pertinent laboratory and imaging results. I agree with the above findings, assessment and plan. In addition, on Doxycycline and Unasyn for acute bronchitis, with possible chronic pneumonia. Would suggest consideration of bronchoscopy if the infiltrates in the lungs persist.
--- NOTE | 2018-08-13 18:18 | PN ---
DATE: 08/13/2018 This is [facility] visit on the medical floor. For Dr. Simmons. SUBJECTIVE: The patient is a 57-year-old male, seen sitting up in bed with known chronic esophageal stricture with patient's worsening cough, history of recurrent aspiration pneumonia, now being treated as per consultants and his primary doctor for his pulmonary disease. The patient is also suffering from chronic pain for which he is on Flexeril three times a day for a significant period of time with consideration to cut back to 5 mg to take two tablets as needed for total of 10 on occasion, but to try to cut back if possible. The patient also has anemic indices for which he is also being evaluated by Dr. Hanson with the patient known to have anemic indices for significant period of time in the past. He is otherwise in no acute distress this visit. OBJECTIVE: VITAL SIGNS: Temperature 97.8, pulse 70, respirations 18, blood pressure 99/60, and pulse ox 97%. HEENT: Unremarkable. NECK: Supple. HEART: Regular rate. LUNGS: Occasional rhonchi with decreased breath sounds at the bases. ABDOMEN: Soft, nontender. EXTREMITIES: No edema. SKIN: Warm and dry. NEUROLOGIC: Awake and alert. LABORATORY DATA: The patient's labs were done yesterday. White blood cell count of 10.2, hemoglobin 9.6, hematocrit of 30.9, and platelet count of 280,000. Metabolic panel showing a potassium of 3.5, with a calcium of 8.1. Iron saturation 8%. Procalcitonin value of 0.5. His INR two days prior was 1.37. Influenza testing was negative. The patient had a CAT scan of the abdomen and pelvis done yesterday, it was read as dense alveolar consolidation with air bronchograms in both lower lobes, right greater than left, consistent with pneumonia. It should be noted that on admission, the patient had a chest x-ray done on 08/08/2018, which showed chronic scarring at the right lung base and elevation of the right hemidiaphragm, no acute findings. The patient had a CT scan of the chest done three days prior, which showed chronic interstitial lung disease, chronic infiltrates, right lower lobe component of volume loss secondary to these chronic findings. No acute findings, interval changes. The patient did have a colonoscopy done two days prior by Dr. Hanson showing redundant colon with hemorrhoids. ASSESSMENT: The assessment for this patient is that of pneumonia, known esophageal stricture, anemia of chronic disease, iron deficiency anemia, chronic pain syndrome, depression, anxiety. PLAN: The plan for this patient after consultation with Dr. Simmons is to continue workup as above. Recommendation is to cut back cyclobenzaprine or Flexeril to 5 mg three times a day to make it p.r.n. with additional tablet for severe muscle spasm as the patient is currently on 10 mg three times a day, not p.r.n. Also, we recommend iron tablet, ferrous sulfate once a day with eventual use of Flintstones with Iron chew vitamins with followup in the office with Dr. Simmons upon discharge. Further workup as indicated. This is a complex patient with a comprehensive medically necessary and appropriate visit carried out in excess of 20 minutes with the patient's questions answered to his satisfaction. Cristofer Jhaveri MD
--- NOTE | 2018-08-14 23:47 | DS ---
HISTORY OF PRESENT ILLNESS: The patient seems doing well. No chest pain. Coughing is better. The patient is otherwise stable. He has no nausea. No vomiting. No other complaints. The patient seen by Dr. Simmons. The CT of the abdomen and pelvis was negative. The patient also had endoscopy and colonoscopy, which was negative. For his anemia, workup will be done as an outpatient by Dr. Simmons. The patient also seen by Dr. Vaughan for Pulmonary and COPD, and pneumonia seems improving and will be discharged home today. DISCHARGE PHYSICAL EXAMINATION: VITAL SIGNS: Temperature 97.8, heart rate 78, blood pressure 113/69, respiratory rate 20, and saturation 97% on room air. HEAD AND NECK: Normal. No JVD. No thyromegaly. CHEST: Bilateral few basal rhonchi. CARDIAC: First sound and second sound are normal. ABDOMEN: Soft and nontender. EXTREMITIES: No edema. NEUROLOGIC: Normal. LABORATORY DATA: White count 10.2, hemoglobin 9.6, hematocrit 30.9, and platelets 280. Chemistry; sodium 141, potassium 3.5, chloride 103, bicarb 32, BUN 3, creatinine 0.5. Iron studies; low iron 28 and low iron saturation. DISCHARGE DIAGNOSES: 1. Community-acquired pneumonia, aspiration pneumonia, will be discharged on p.o. Augmentin for a week and doxycycline for a week. Continue inhaled bronchodilators. Continue DM. 2. Anemia. Workup negative. Colonoscopy done by Dr. Hanson, gastrointestinal consult, negative. 3. Chronic obstructive pulmonary disease. 4. Chronic back pain, prior surgeries. 5. Depression and anxiety. Continue current medications. See in my office as an outpatient. Continue Klonopin 1 mg b.i.d. has been reduced. Flexeril, Zoloft 100, oxycodone 80 mg twice a day reduced, and oxycodone 15 q.i.d., omeprazole 40 mg p.o. q.a.m., and vitamin C as outpatient p.o. daily. Ishaan Little MD
== END 2018-08-13 16:20 | disposition home or self-care (01) | DRG 178 ==
LOC: ED 22:11 → ERH 08-09 00:10 → 5RSO 08-10 00:05
PROVIDERS: ADMIT Internal Medicine; ATTEND Internal Medicine
PROC: 0DJD8ZZ Inspection of Lower Intestinal Tract, Via Natural or Artificial Opening Endoscopic (ICD-10-PCS; principal; 2018-08-11 17:00)
DX: J69.0 Pneumonitis due to inhalation of food and vomit (principal); J44.0 Chronic obstructive pulmonary disease with (acute) lower respiratory infection; J20.9 Acute bronchitis, unspecified; K22.2 Esophageal obstruction; K64.9 Unspecified hemorrhoids; D50.9 Iron deficiency anemia, unspecified; D63.8 Anemia in other chronic diseases classified elsewhere; F41.8 Other specified anxiety disorders; G89.4 Chronic pain syndrome; M54.9 Dorsalgia, unspecified; Z87.891 Personal history of nicotine dependence; Z87.01 Personal history of pneumonia (recurrent)

== ENCOUNTER 2018-10-07 06:56 | Day surgery (SDC) | payer MEDICARE ==
[2018-09-30 16:27] VITALS: BMI 24.3
[2018-10-07] MEDS ORDERED: Propofol 10 mg/ml Inj (20 ML) ONE (09:12)
[2018-10-07] MEDS ORDERED: Midazolam 2 MG/2 ML VIAL ONE (09:12)
[2018-10-07] MEDS ORDERED: Sodium Chloride 0.9% 1,000 ML IV SCH (10:30)
[2018-10-07 11:07] VITALS: BP 113/67; PULSE 66; RESP 18; TEMP 98.1; O2SAT 96
--- NOTE | 2018-10-07 13:15 | RAD ---
Date of service: 10/07/2018 PROCEDURE: Fluoroscopy up to 1 hr HISTORY: DILITATION COMPARISON: TECHNIQUE: 358.1 sec of fluoro time. Cumulative dose 52.3 mGy. 6 images were obtained FINDINGS: The study shows a esophageal dilatation catheter in place. IMPRESSION: As above
== END 2018-10-07 12:11 | disposition home or self-care (01) ==
LOC: ENDO 06:56
PROVIDERS: ATTEND Internal Medicine Gastroenterology
DX: K22.2 Esophageal obstruction (principal); K29.70 Gastritis, unspecified, without bleeding; Z87.01 Personal history of pneumonia (recurrent); K21.9 Gastro-esophageal reflux disease without esophagitis; F32.89 Other specified depressive episodes; M54.9 Dorsalgia, unspecified; Z90.49 Acquired absence of other specified parts of digestive tract
CPT/HCPCS: 43248; 76000; J2001; J2250; J2704; J3010; J7030

== ENCOUNTER 2018-11-05 12:42 | Outpatient (CLI) | payer MEDICARE | END 2018-11-05 12:43 | disposition home or self-care (01) | LOC: RAD 12:42 | DX: S09.90XA Unspecified injury of head, initial encounter (principal) ==